=== PATIENT | female | born 1970 | race Caucasian/White ===

== ENCOUNTER 2020-08-05 11:48 | Emergency (ER) | payer OTHER, MEDICAID, SELFPAY ==
[2020-08-05 11:57] VITALS: BP 218/128; PULSE 81; RESP 16; TEMP 36.6; O2SAT 97; BMI 43.4
[2020-08-05 12:19] LABS: Add Manual Diff / Slide Review NO; Basophils Absolute Auto 100 /uL (0-100); Basophils Percent Auto 1.4 % (0-2); Eosinophils Absolute Auto 100 /uL (0-450); Eosinophils Percent Auto 1.9 % (2-4); Hematocrit 37.9 % (36-46); Hemoglobin 12.9 g/dL (12.0-16.0); Lymphocytes Absolute Auto 2500 /uL (1100-4500); Lymphocytes Percent Auto 31.1 % (25-40); Mean Corpuscular HGB Conc 34.1 % (30-36); Mean Corpuscular Hemoglobin 34.8 PG (26-34); Monocytes Absolute Auto 500 /uL (0-900); Neutrophils Absolute Auto 4700 /uL (1500-7000); Neutrophils Percent Auto 59.6 % (50-75); Platelet Count 355 X10^3/uL (150-400); Red Blood Cell Count 3.71 X10^6/uL (4.0-5.2); Red Cell Distribution Width 15.3 % (11.6-14.8); White Blood Cell Count 7.9 X10^3/uL (4.5-11.0)
[2020-08-05 12:35] LABS: BUN Creatinine Ratio 13.1 (6-22); Blood Urea Nitrogen 14 mg/dL (7-17); Calcium 9.4 mg/dL (8.4-10.2); Carbon Dioxide 32 mmol/L (22-32); Chloride 100 mmol/L (98-107); Estimated Glomerular Filt Rate 54.7 mL/min (>60); Glucose 116 mg/dL (70-100); HEMOLYSIS < 15 (0-50); Potassium 3.8 mmol/L (3.4-5.1); Sodium 139 mmol/L (137-145)
--- NOTE | 2020-08-05 12:59 | PC.NURSE ---
patient sent from PCP with asymptomatic hypertension. denies SOB, chest pains, n/v, diophoresis, headache, vision changes
--- NOTE | 2020-08-05 13:01 | ED_ITS ---
HPI - General Adult General Chief complaint: Hypertension Stated complaint: BLOOD PRESSURE IS EXTREMELY HIGH Time Seen by Provider: 08/05/20 12:05 Source: patient Mode of arrival: Ambulatory Limitations: no limitations History of Present Illness HPI narrative: Patient is a 50-year-old female with a prior history of hypertension. She used to be on antihypertensive medicines but has not been on them for some time now. She states that there was issues with pain med/insurance. That now has been resolved. She had an appointment today to establish care with a new primary provider. When she arrived at the visit was found that she was hypertensive. She denies any associated symptoms. She was sent to the emergency department for further evaluation. Related Data Previous Rx's Medication Instructions Recorded lisinopril 10 mg PO DAILY #30 tab 08/05/20 Allergies Allergy/AdvReac Type Severity Reaction Status Date / Time No Known Drug Allergies Allergy Unverified 08/05/20 10:35 Review of Systems Constitutional Constitutional: Denies headache(s) ENT Ears, Nose, Mouth, and Throat: Denies headache(s) Cardiovascular Cardiovascular: Denies chest pain and Denies dyspnea Respiratory Respiratory: Denies dyspnea Gastrointestinal Gastrointestinal: Denies abdominal pain Integumentary/Breasts Skin/Breast: Reports system reviewed and no additional complaints, except as documented Neurologic Neurologic: Reports system reviewed and no additional complaints, except as documented and Denies headache(s) Hematologic/Lymphatic On Anticoagulants: No Allergic/Immunologic Allergic/Immunologic: Reports system reviewed and no additional complaints, except as documented Patient History Medical History Hypertension Social History Smoking Status: Current every day smoker Smoking Status: Current every day smoker Exam Initial Vital Signs Initial Vital Signs: Vital Signs Temperature 97.8 F 08/05/20 11:57 Pulse Rate 81 08/05/20 11:57 Respiratory Rate 16 08/05/20 11:57 Blood Pressure 218/128 H 08/05/20 11:57 Pulse Oximetry 97 08/05/20 11:57 Const General: cooperative and comfortable Limitations: mental status not altered HENMT Head: normal to inspection and normocephalic Eyes General: appearance normal, both eyes and all related structures Resp Effort & Inspection: normal respiratory effort Auscultation: clear to auscultation bilaterally Cardio Rate: regular rate Rhythm: regular rhythm Skin Lesions: no lesions Rashes: no rashes Neuro General: patient alert, patient awake and patient oriented x3 Cognition: normal cognition Speech: speech normal Motor: muscle tone normal throughout Sensory Exam: no sensory deficits noted Extrem General: normal to inspection and capillary refill normal Psych Appearance: grossly normal and well kempt Scores GCS Jennifer coma scale eye opening: Spontaneous Jennifer coma scale verbal response: Orientated [place] coma scale motor response: Obey commands [place] coma scale total score: 15 Course Orders Ordered: ED Orders 08/05/20 12:00 EKG-12 Lead Stat 08/05/20 12:12 Basic Metabolic Panel Stat Complete Blood Count AUTO DIFF Stat Discontinued Medications Lisinopril (Lisinopril 10 Mg Tablet) 10 mg PO NOW ONE Stop: 08/05/20 13:02 Last Admin: 08/05/20 13:08 Dose: 10 mg Documented by: DEEP Vital Signs Vital signs: Vital Signs - 8 hr 08/05/20 11:57 08/05/20 13:08 08/05/20 13:15 Temperature 97.8 F Pulse Rate 81 72 70 Respiratory Rate 16 22 Blood Pressure 218/128 H 191/115 H 189/112 H Pulse Oximetry 97 99 Medical Decision Making Lab Data Lab results reviewed: Yes I reviewed the patient's lab results. Result diagrams: 08/05/20 12:12 08/05/20 12:12 Labs: Lab Results 08/05/20 08/05/20 Range/Units 12:12 12:12 WBC 7.9 (4.5-11.0) X10^3/uL RBC 3.71 L (4.0-5.2) X10^6/uL Hgb 12.9 (12.0-16.0) g/dL Hct 37.9 (36-46) % MCV 102.0 H (80-100) fL MCH 34.8 H (26-34) PG MCHC 34.1 (30-36) % RDW 15.3 H (11.6-14.8) % Plt Count 355 (150-400) X10^3/uL Neut % (Auto) 59.6 (50-75) % Lymph % (Auto) 31.1 (25-40) % [place] % (Auto) 6.0 (3-14) % Eos % (Auto) 1.9 L (2-4) % Baso % (Auto) 1.4 (0-2) % Neut # (Auto) 4700 (0689-2626) /uL Lymph # (Auto) 2500 (8414-1163) /uL [place] # (Auto) 500 (0-900) /uL Eos # (Auto) 100 (0-450) /uL Baso # (Auto) 100 (0-100) /uL Sodium 139 (137-145) mmol/L Potassium 3.8 (3.4-5.1) mmol/L Chloride 100 (98-107) mmol/L Carbon Dioxide 32 (22-32) mmol/L BUN 14 (7-17) mg/dL Creatinine 1.07 H (0.52-1.04) mg/dL Estimated GFR 54.7 L (>60) mL/min BUN/Creatinine Ratio 13.1 (6-22) Glucose 116 H (70-100) mg/dL Calcium 9.4 (8.4-10.2) mg/dL ECG Data Attestation: I personally reviewed and interpreted this ECG as follows: Prior ECG tracings: not available for review Interpretation: Sinus rhythm Ventricular rate is 78 Normal axis Normal QRS Normal QTC No ST T wave changes MDM Narrative Medical decision making narrative: Patient is hypertensive but is asymptomatic. She has no indication of any end-organ dysfunction. Low suspicion for ACS. Not clinically in heart failure. No respiratory distress. No headaches. She has been on lisinopril and atenolol in the past. Since she has not been on any these medications in some time will start her on lisinopril today. She understands that this will potentially need to be increased and other medications will potentially need to be added but I feel starting her slow so that she does not drop her blood pressure to fast is warranted in her case. We did discuss the procedure taking her blood pressure at home. Will have her contact her primary provider for follow-up. She expressed understanding and agreement. Discharge Plan Departure Patient Disposition: Home Clinical Impression: Hypertension Instructions: DI for High Blood Pressure Activity Restrictions/Additional Instructions: A prescription for lisinopril was electronically transmitted to [facility]. Please start taking it tomorrow. You were given a dose here in the emergency department. Start taking her blood pressure at home like we discussed. I recommend that after discharge ago past your primary provider's office to schedule a repeat appointment. Return to the emergency department for any new or worsening symptoms Prescriptions: New lisinopril 10 mg tablet 10 mg PO DAILY Qty: 30 RF: 0 Referrals: Pierre Rivera ARNP [Primary Care Provider] -
[2020-08-05 13:08] VITALS: BP 191/115; PULSE 72
[2020-08-05] MEDS: lisinopriL 10 MG TABLET PO (13:08)
[2020-08-05 13:15] VITALS: BP 189/112; PULSE 70; RESP 22; O2SAT 99
== END 2020-08-05 13:16 | disposition home or self-care (01) ==
PROVIDERS: Emergency Provider Emergency Medicine; PCP Registered Nurse Diabetes Educator
DX: I10 Essential (primary) hypertension (principal)
CPT/HCPCS: 36415; 80048; 85025; 93005; 99283; 99284

== ENCOUNTER → 2020-08-18 14:11 | Outpatient (CLI) | payer OTHER, MEDICAID, SELFPAY ==
--- NOTE | 2020-08-18 14:12 | DI.US.S_ITS ---
PROCEDURE: US THYROID INDICATIONS: ENLARGED THYROID TECHNIQUE: Real-time scanning was performed of the thyroid gland, with image documentation. COMPARISON: None. FINDINGS: Right: The thyroid gland is diffusely enlarged and hypoechoic with heterogenous echotexture measuring 6.8 x 2.5 x 3.4 centimeter. There is no increased vascularity. No solid or cystic mass. A 5 millimeter calcification is seen in the midpole of the right thyroid. Left: The thyroid gland is diffusely enlarged and hypoechoic with heterogenous echotexture measuring 6.2 x 3.7 x 2.3 centimeters there is no increased vascularity. No solid or cystic mass. A lymph node in the left lateral neck measures 1.4 x 0.8 x 1.1 centimeters. Isthmus: The thyroid isthmus is thickened measuring 2.1 centimeters. mm thick. IMPRESSION: 1. Diffusely enlarged thyroid bilaterally consistent with thyroiditis. 2. No focal thyroid nodule. 3. Enlarged lymph node in the left neck. Dictated by: Julio Hamilton M.D. on 08/18/2020 at 16:13 Approved by: Julio Hamilton M.D. on 08/18/2020 at 16:21
== END ==
PROVIDERS: PCP Registered Nurse Diabetes Educator; Referring Provider Registered Nurse Diabetes Educator; Visit Provider Registered Nurse Diabetes Educator
DX: E04.9 Nontoxic goiter, unspecified (principal)
CPT/HCPCS: 76536

== ENCOUNTER → 2020-08-28 08:13 | Outpatient (CLI) | payer OTHER, MEDICAID, SELFPAY ==
[2020-08-28 09:07] LABS: Appearance Urine UA CLEAR; Bilirubin Urine UA NEGATIVE (NEGATIVE); Color Urine UA YELLOW; Glucose Urine UA NEGATIVE (Negative); Ketones Urine UA NEGATIVE (NEGATIVE); Leukocyte Esterase Urine UA NEGATIVE (NEGATIVE); Nitrite Urine UA NEGATIVE (Negative); Occult Blood Urine UA 1+ (Negative); Protein Urine UA TRACE (Negative); Urobilinogen Urine UA 0.2 E.U./dL (0.2)
[2020-08-28 09:18] LABS: Amorphous Sediment Urine 2+; Bacteria Urine Occasional (0-1); Culture Indicated Urine Specimen Cultured; Mucus Urine 2+ (Negative); RBC Urine 0-1/HPF (0-5/HPF); Squamous Epithelial Cell Urine 1-5 /HPF (0-5/HPF); WBC Urine 0-1/HPF (0-5/HPF)
[2020-08-28 09:34] LABS: Alanine Aminotransferase 19 IU/L (<35); Albumin 4.8 g/dL (3.5-5.0); Albumin Globulin Ratio 1.3 (1.0-2.8); Alkaline Phosphatase 60 U/L (38-126); Aspartate Aminotransferase 40 IU/L (14-36); Bilirubin Total 0.5 mg/dL (0.2-1.3); Blood Urea Nitrogen 11 mg/dL (7-17); Calcium 9.7 mg/dL (8.4-10.2); Carbon Dioxide 31 mmol/L (22-32); Chloride 98 mmol/L (98-107); Globulin 3.6 g/dL (1.7-4.1); Glucose 124 mg/dL (70-100); HDL Cholesterol 49 mg/dL (40-60); HEMOLYSIS < 15 (0-50); Sodium 136 mmol/L (137-145); Total Protein 8.4 g/dL (6.3-8.2); Triglycerides 170 mg/dL (35-150)
[2020-08-28 09:49] LABS: Cholesterol 413 mg/dL (140-199); Free T4, Direct Thyroxine < 0.09 ng/dL (0.78-2.19); LDL Cholesterol Calculated 330 mg/dL (<100)
[2020-08-28 09:58] LABS: Creatinine Urine Random 200.6 mg/dL
[2020-08-28 10:02] LABS: Microalbumi Creatinin Ratio Ur 35.8 ug/mg CR (<30); Microalbumin Urine Random 7.2 mg/dL (0-1.6)
[2020-08-28 10:27] LABS: Folate > 20.0 ng/mL (2.76-20.0); Vitamin B12 722 pg/mL (239-931)
[2020-08-28 10:46] LABS: Thyroid Stimulating Hormone 157 uIU/mL (0.47-4.68)
[2020-08-29 07:48] LABS: Thyroid Peroxidase Antibodies >600 IU/mL (0-34)
== END ==
PROVIDERS: PCP Registered Nurse Diabetes Educator; Referring Provider Registered Nurse Diabetes Educator; Visit Provider Registered Nurse Diabetes Educator
DX: D75.89 Other specified diseases of blood and blood-forming organs (principal); E04.9 Nontoxic goiter, unspecified; I10 Essential (primary) hypertension; R94.4 Abnormal results of kidney function studies
CPT/HCPCS: 36415; 80053; 80061; 81001; 82043; 82570; 82607; 82746; 84439; 84443; 84481; 86376; 87086

== ENCOUNTER → 2020-09-10 10:46 | Outpatient (CLI) | payer OTHER, MEDICAID, SELFPAY ==
--- NOTE | 2020-09-10 10:47 | DI.US.S_ITS ---
PROCEDURE: US PERIPH VENOUS LOW EXTREM BI INDICATIONS: BILATERAL THIGH PAIN TECHNIQUE: Real-time imaging, as well as color and pulse Doppler interrogation, were performed of the deep veins of both legs from the inguinal ligament to the popliteal fossa. COMPARISON: None. FINDINGS: Right: The common femoral, femoral and popliteal veins are normally compressible, and free of intraluminal thrombus. Color and pulse Doppler demonstrate normal phasic intravascular flow. There is normal augmentation response to distal compression maneuver. Left: The common femoral, femoral and popliteal veins are normally compressible, and free of intraluminal thrombus. Color and pulse Doppler demonstrate normal phasic intravascular flow. There is normal augmentation response to distal compression maneuver. IMPRESSION: No evidence of DVT in visualized bilateral lower extremity veins. Dictated by: Pete Diallo M.D. on 09/10/2020 at 11:22 Approved by: Pete Diallo M.D. on 09/10/2020 at 11:22
--- NOTE | 2020-09-10 10:47 | DI.RAD.S_ITS ---
PROCEDURE: XR HIP W PEL IF DONE DOLORES MIN 4V INDICATIONS: bilateral hip pain, possible lumbosacral radiculopathy TECHNIQUE: AP pelvis with lateral view(s) of the bilateral hip(s). COMPARISON: None. FINDINGS: Bones: No fractures or dislocations. Mild to moderate symmetric appearing bilateral hip joint osteoarthritis is seen. No evidence of avascular necrosis of femoral head. Pelvic ring appears intact. No suspicious bony lesions. Soft tissues: The visualized bowel gas pattern is normal. No suspicious soft tissue calcifications. IMPRESSION: Symmetric appearing [id number] bilateral hip joint osteoarthritis. No fracture or dislocation. No evidence of avascular necrosis. Dictated by: Pete Diallo M.D. on 09/10/2020 at 13:08 Approved by: Pete Diallo M.D. on 09/10/2020 at 13:25
--- NOTE | 2020-09-10 10:47 | DI.RAD.S_ITS ---
PROCEDURE: XR LUMBAR SPINE MIN 4V INDICATIONS: bilateral hip pain, possible lumbosacral radiculopathy TECHNIQUE: 5 views of the lumbar spine were acquired, including bilateral oblique views. COMPARISON: None. FINDINGS: Bones: 5 nonrib-bearing vertebrae are present. There is normal bony alignment. No vertebral body compression fractures. Mild degenerative endplate changes are noted in lower lumbar spine at L4-5 and L5-S1 levels. No suspicious bony lesions. Soft tissues: Overlying bowel gas pattern is normal. No suspicious soft tissue calcifications. Oblique images: No pars defects. IMPRESSION: Very mild degenerative disc disease in lower lumbar spine at L4-5 and L5-S1 levels. No compression fracture or spondylolisthesis. No gross pars defect. Dictated by: Pete Diallo M.D. on 09/10/2020 at 13:44 Approved by: Pete Diallo M.D. on 09/10/2020 at 13:45
== END ==
PROVIDERS: PCP Registered Nurse Diabetes Educator; Referring Provider Registered Nurse Diabetes Educator; Visit Provider Registered Nurse Diabetes Educator
DX: M25.551 Pain in right hip (principal); M25.552 Pain in left hip; M16.0 Bilateral primary osteoarthritis of hip; R20.2 Paresthesia of skin; M79.651 Pain in right thigh; M79.652 Pain in left thigh
CPT/HCPCS: 72110; 73522; 93970

== ENCOUNTER → 2020-10-07 10:29 | Outpatient (CLI) | payer OTHER, MEDICAID, SELFPAY ==
[2020-10-07 10:50] LABS: Add Manual Diff / Slide Review NO; Basophils Absolute Auto 100 /uL (0-100); Basophils Percent Auto 1.4 % (0-2); Eosinophils Absolute Auto 100 /uL (0-450); Eosinophils Percent Auto 1.2 % (2-4); Hematocrit 32.3 % (36-46); Hemoglobin 10.7 g/dL (12.0-16.0); Lymphocytes Absolute Auto 2200 /uL (1100-4500); Lymphocytes Percent Auto 23.7 % (25-40); Mean Corpuscular HGB Conc 33.3 % (30-36); Mean Corpuscular Hemoglobin 33.8 PG (26-34); Mean Corpuscular Volume 101.5 fL (80-100); Monocytes Absolute Auto 800 /uL (0-900); Monocytes Percent Auto 8.7 % (3-14); Neutrophils Absolute Auto 6000 /uL (1500-7000); Platelet Count 482 X10^3/uL (150-400); Red Blood Cell Count 3.18 X10^6/uL (4.0-5.2); Red Cell Distribution Width 14.6 % (11.6-14.8); White Blood Cell Count 9.3 X10^3/uL (4.5-11.0)
[2020-10-07 11:31] LABS: BUN Creatinine Ratio 21.2 (6-22); Blood Urea Nitrogen 22 mg/dL (7-17); Calcium 9.2 mg/dL (8.4-10.2); Carbon Dioxide 28 mmol/L (22-32); Chloride 102 mmol/L (98-107); Estimated Glomerular Filt Rate 56.6 mL/min (>60); Glucose 102 mg/dL (70-100); HEMOLYSIS < 15 (0-50); Potassium 4.2 mmol/L (3.4-5.1); Sodium 137 mmol/L (137-145)
[2020-10-07 12:16] LABS: TSH w/ Reflex to FT4 3.57 uIU/mL (0.47-4.68)
== END ==
PROVIDERS: PCP Registered Nurse Diabetes Educator; Referring Provider Registered Nurse Diabetes Educator; Visit Provider Registered Nurse Diabetes Educator
DX: R73.01 Impaired fasting glucose (principal); D75.89 Other specified diseases of blood and blood-forming organs; I10 Essential (primary) hypertension; R94.4 Abnormal results of kidney function studies
CPT/HCPCS: 36415; 80048; 83036; 84443; 85025

== ENCOUNTER 2020-12-10 08:15 | Outpatient (RCR) | payer OTHER, MEDICAID, SELFPAY ==
--- NOTE | 2020-10-13 15:57 | PT.OIE ---
Current Diagnoses Pain in unspecified hip (10/13/20) Dorsalgia, unspecified (10/13/20) Past Medical History (Last Updated 10/12/20 @ 20:37 by Mariya Olsen) Acquired hypothyroidism (~1996) Anxiety (~1988) Chicken pox (~1978) History of appendectomy (~1981) History of tonsillectomy (~1983) History of tubal ligation (~2001) Human papilloma virus (~2011) Hypertension (~1996) Impaired fasting blood sugar Microalbuminuria PTSD (post-traumatic stress disorder) (~1988) Shoulder pain (~2006) Thyroid nodule (~1996) Wears glasses Past Surgical History (Last Updated 10/12/20 @ 20:37 by Mariya Olsen) Anesthesia History of appendectomy (~1981) History of tonsillectomy (~1983) History of tubal ligation (~2001) Visit Care Team Role Provider Type KWAME Bull Attending Provider Advanced Dj Instructor Primary Care Provider Referring Provider Specialty: Medical Address: [address] [place] [address], [facility] Email: [email or web address] Physical Therapy Initial Evaluation PT-OP-A Visit Information Start: 10/13/20 11:59 Freq: Status: Active Protocol: Document 10/13/20 13:30 AMB (Rec: 10/14/20 08:38 AMB [email or web address]) Out-Patient Physical Therapy Visit Information Visit Information Visit Type Initial Evaluation Visit Start Time 13:30 Visit Stop Time 14:15 Total Visit Minutes 45 Visit Number 1 PT-OP-B Current Condition Start: 10/13/20 11:59 Freq: Status: Active Protocol: Document 10/13/20 13:30 AMB (Rec: 10/13/20 13:47 AMB [id number]) Current Condition History of Current Condition Onset Date a couple of years, worsening for about 8 months, insidious onset Current Complaints R hip/back pain, intermittent ant thigh pain L>R History of Current Condition R hip/ back pain is constant, bilateral anterior thigh pain L>R but doesn't happen at the same time. L leg heaviness is happening multiple times per week getting out of bed, then move from sit to stand and generally pain happens then. Bending the knee seems to be a problem, especially kneeling. Insidious onset. Hip pain seems to be the worst ( constant). Standing stationary is very painful because of R hip pain. Semi reclined position with legs straight out is the most relieving position. 5 years ago walking 7-8 miles, now can 't stand more than a few minutes or walk more than a few minutes without pain. Treatment Goals Patient/Caregiver Goals Less pain Prior Functional Status Baseline Function- ADL's Independent Baseline Function- Mobility Independent Current Functional Impairments (Reported) Functional Limitations- ADL's Patient is applying for SSI for mental health reasons. She is currently living in a motel with her mom and daughter. She helps with laundry to get less rent. Personal Factors Other Personal Factors That May Effect [place] housing, HTN, Therapy/Recovery hypothyroid PT-OP-C Subjective Start: 10/13/20 11:59 Freq: Status: Active Protocol: Document 10/13/20 13:30 AMB (Rec: 10/14/20 08:38 AMB [email or web address]) Patient Questionnaires Lower Extremity Functional Scale LEFS Score 34 LEFS Impairment 40 to 59% Impaired (Score 32- 47) Oswestry Low Back Index Oswestry Score 44 Oswestry Impairment 40 to 59% Impaired (Score 40- 59) OP-PT Pain Assessment Comments Pain Comments R>L hip pain 4/10 dull ache can progress to stabbing, L>R quad pain just superior to patella 3/10 (electric), low back pain 4/10 PT-OP-F Manual Assessment Start: 10/13/20 11:59 Freq: Status: Active Protocol: Document 10/13/20 13:30 AMB (Rec: 10/14/20 15:57 AMB [email or web address]) Manual Assessments Soft Tissue Assessment Soft Tissue Mobility Assessment Tenderness throughout lumbar paraspinals, gluteals and especially at distal quads bilaterally PT-OP-G Mobility & Gait Start: 10/13/20 11:59 Freq: Status: Active Protocol: Document 10/13/20 13:30 AMB (Rec: 10/14/20 15:57 AMB [email or web address]) OP Gait Assessment Comments Gait Comments Pt attends in flip flops, WBOS reduced trunk rotation, trendelenburg gait, no AD PT-OP-K Range of Motion Start: 10/13/20 11:59 Freq: Status: Active Protocol: Document 10/13/20 13:30 AMB (Rec: 10/14/20 15:57 AMB [email or web address]) Lumbar Spine Range of Motion Lumbar Spine Active Degrees Testing Position Standing Flexion 25 Extension 20 Lateral Flexion Left 20 Lateral Flexion Right 10 Comments pain with flexion and Right sidebending Hip Goniometric Range of Motion Hip Left Passive Flexion w/Knee Flexed 93 Internal Rotation 38 External Rotation 38 Right Passive Flexion w/Knee Flexed 107 Internal Rotation 22 External Rotation 48 PT-OP-M Strength Start: 10/13/20 11:59 Freq: Status: Active Protocol: Document 10/13/20 13:30 AMB (Rec: 10/14/20 15:57 AMB [email or web address]) Hip Strength Hip Manual Muscle Testing Right Flexion (L2) 3- Fair- Extension (S1) 3- Fair- Abduction 3- Fair- External Rotation 3- Fair- Left Flexion (L2) 4 Good Extension (S1) 4 Good Abduction 4 Good External Rotation 4 Good PT-OP-T Assessment and Plan Start: 10/13/20 11:59 Freq: Status: Active Protocol: Document 10/13/20 13:30 AMB (Rec: 10/15/20 07:34 AMB [email or web address]) Physical Therapy Assessment Rehab Potential Rehabilitation Potential Good Evaluation Complexity Number of Personal Factors/Comorbidities 1-2 Number of Body Systems Impaired 4 or More Clinical Presentation at Evaluation Evolving Impairments Impairments Functional Activities, Functional Mobility,Gait,Pain, Posture,ROM,Strength Goals Three Impairment Standing tolerance Short Term Goal (STG) Danica will stand for 5 minutes with 3/10 pain or less. STG Duration 4 weeks Two Impairment HEP Short Term Goal (STG) Danica will be independent with a core and hip stabilization HEP. STG Duration 4 weeks One Impairment Strength Short Term Goal (STG) Danica will improve her hip abduction and external rotation strength to 4/5 or greater. STG Duration 4 weeks Half-Way Goal (LTG) Danica will improve her hip strength so that she can ambulate without Trendelenburg gait for 2 minutes. LTG Duration 6 weeks Assessment Summary Assessment Danica attends physical therapy with R>L low back hip pain and bilateral anterior distal thigh pain that do not seem to be related. During eval, we could easily reproduce Danica's R hip pain with hip IR/ER ROM and she was very weak with hip abduction and external rotation. She will benefit from both stretching and strengthening of the right hip and low back/core to manage this pain. The sudden/sharp pain in her bilateral thighs was more difficult to reproduce in the therapy session. She was quite tight in her quads and tender with palpation and would likely benefit from myofascial release there. She will benefit from physical therapy however her living situation and limited insurance benefits will be limiting factors. Physical Therapy Plan Frequency and Duration Frequency of Treatment 2x/Week Duration of Treatment 6 weeks Plan of Care Start Date 10/13/20 Plan of Care End Date 11/24/20 Therapeutic Interventions Therapeutic Interventions Gait Training,Home Exercise Program,Joint Mobilizations, Manual Therapy,Neuromuscular Re-education,Self-Care/Home Management,Therapeutic Activities,Therapeutic Exercises Modalities Cold Pack/Ice Massage,Electric Stimulation,Hot Packs Next Visit Focus/Plan Next Note Type Treatment Note Next Visit Plan Follow up on clamshells and hip flexor strength
--- NOTE | 2020-10-13 15:59 | PT.OPPOC ---
Physical, Occupational & Speech Therapy At [facility] Current Diagnoses Pain in unspecified hip (10/13/20) Dorsalgia, unspecified (10/13/20) Visit Care Team Role Provider Type KWAME Bull Attending Provider Advanced Ball Holder Primary Care Provider Referring Provider Specialty: Medical Address: [address] [place] [address], [facility] Email: [email or web address] Plan Of Care PT-OP-T Assessment and Plan Start: 10/13/20 11:59 Freq: Status: Active Protocol: Document 10/13/20 13:30 AMB (Rec: 10/15/20 07:34 AMB [email or web address]) Physical Therapy Assessment Rehab Potential Rehabilitation Potential Good Evaluation Complexity Number of Personal Factors/Comorbidities 1-2 Number of Body Systems Impaired 4 or More Clinical Presentation at Evaluation Evolving Impairments Impairments Functional Activities, Functional Mobility,Gait,Pain, Posture,ROM,Strength Goals Three Impairment Standing tolerance Short Term Goal (STG) Danica will stand for 5 minutes with 3/10 pain or less. STG Duration 4 weeks Two Impairment HEP Short Term Goal (STG) Danica will be independent with a core and hip stabilization HEP. STG Duration 4 weeks One Impairment Strength Short Term Goal (STG) Danica will improve her hip abduction and external rotation strength to 4/5 or greater. STG Duration 4 weeks Custodial Goal (LTG) Danica will improve her hip strength so that she can ambulate without Trendelenburg gait for 2 minutes. LTG Duration 6 weeks Assessment Summary Assessment Danica attends physical therapy with R>L low back hip pain and bilateral anterior distal thigh pain that do not seem to be related. During eval, we could easily reproduce Danica's R hip pain with hip IR/ER ROM and she was very weak with hip abduction and external rotation. She will benefit from both stretching and strengthening of the right hip and low back/core to manage this pain. The sudden/sharp pain in her bilateral thighs was more difficult to reproduce in the therapy session. She was quite tight in her quads and tender with palpation and would likely benefit from myofascial release there. She will benefit from physical therapy however her living situation and limited insurance benefits will be limiting factors. Physical Therapy Plan Frequency and Duration Frequency of Treatment 2x/Week Duration of Treatment 6 weeks Plan of Care Start Date 10/13/20 Plan of Care End Date 11/24/20 Therapeutic Interventions Therapeutic Interventions Gait Training,Home Exercise Program,Joint Mobilizations, Manual Therapy,Neuromuscular Re-education,Self-Care/Home Management,Therapeutic Activities,Therapeutic Exercises Modalities Cold Pack/Ice Massage,Electric Stimulation,Hot Packs Next Visit Focus/Plan Next Note Type Treatment Note Next Visit Plan Follow up on clamshells and hip flexor strength Plan of Care Dates Plan of Care Start Date 10/13/20 Plan of Care End Date 11/24/20 Electronically Signed by: Hallie Cedeno, PT 10/15/20 [id number] Please Sign and Return: I have reviewed this Plan of Care and certify that the skilled therapy services above are required to meet the patient?s needs. Physician Signature Date Printed Name and Credentials Clinical Instructor Signature Printed Name and Credentials
--- NOTE | 2020-10-22 14:02 | PT.OTN ---
Current Diagnoses Pain in unspecified hip (10/22/20) Dorsalgia, unspecified (10/22/20) Physical Therapy Treatment Note PT-OP-A Visit Information Start: 10/13/20 11:59 Freq: Status: Active Protocol: Document 10/22/20 08:15 AMB (Rec: 10/22/20 08:48 AMB [id number]) Out-Patient Physical Therapy Visit Information Visit Information Visit Type Treatment Note Visit Start Time 08:15 Visit Stop Time 09:00 Total Visit Minutes 45 Visit Number 2 PT-OP-B Current Condition Start: 10/13/20 11:59 Freq: Status: Active Protocol: Document 10/13/20 13:30 AMB (Rec: 10/13/20 13:47 AMB [id number]) Current Condition History of Current Condition Onset Date a couple of years, worsening for about 8 months, insidious onset Current Complaints R hip/back pain, intermittent ant thigh pain L>R History of Current Condition R hip/ back pain is constant, bilateral anterior thigh pain L>R but doesn't happen at the same time. L leg heaviness is happening multiple times per week getting out of bed, then move from sit to stand and generally pain happens then. Bending the knee seems to be a problem, especially kneeling. Insidious onset. Hip pain seems to be the worst ( constant). Standing stationary is very painful because of R hip pain. Semi reclined position with legs straight out is the most relieving position. 5 years ago walking 7-8 miles, now can 't stand more than a few minutes or walk more than a few minutes without pain. Treatment Goals Patient/Caregiver Goals Less pain Prior Functional Status Baseline Function- ADL's Independent Baseline Function- Mobility Independent Current Functional Impairments (Reported) Functional Limitations- ADL's Patient is applying for SSI for mental health reasons. She is currently living in a motel with her mom and daughter. She helps with laundry to get less rent. Personal Factors Other Personal Factors That May Effect [place] housing, HTN, Therapy/Recovery hypothyroid PT-OP-C Subjective Start: 10/13/20 11:59 Freq: Status: Active Protocol: Document 10/22/20 08:15 AMB (Rec: 10/22/20 08:48 AMB [id number]) OP-PT Subjective Patient Comments Patient Comments Pt reports she has been doing the clamshell and it is going ok. She has been walking more because she is trying to quit smoking. PT-OP-F Manual Assessment Start: 10/13/20 11:59 Freq: Status: Active Protocol: Document 10/13/20 13:30 AMB (Rec: 10/14/20 15:57 AMB [email or web address]) Manual Assessments Soft Tissue Assessment Soft Tissue Mobility Assessment Tenderness throughout lumbar paraspinals, gluteals and especially at distal quads bilaterally PT-OP-G Mobility & Gait Start: 10/13/20 11:59 Freq: Status: Active Protocol: Document 10/13/20 13:30 AMB (Rec: 10/14/20 15:57 AMB [email or web address]) OP Gait Assessment Comments Gait Comments Pt attends in flip flops, WBOS reduced trunk rotation, trendelenburg gait, no AD PT-OP-K Range of Motion Start: 10/13/20 11:59 Freq: Status: Active Protocol: Document 10/13/20 13:30 AMB (Rec: 10/14/20 15:57 AMB [email or web address]) Lumbar Spine Range of Motion Lumbar Spine Active Degrees Testing Position Standing Flexion 25 Extension 20 Lateral Flexion Left 20 Lateral Flexion Right 10 Comments pain with flexion and Right sidebending Hip Goniometric Range of Motion Hip Left Passive Flexion w/Knee Flexed 93 Internal Rotation 38 External Rotation 38 Right Passive Flexion w/Knee Flexed 107 Internal Rotation 22 External Rotation 48 PT-OP-M Strength Start: 10/13/20 11:59 Freq: Status: Active Protocol: Document 10/13/20 13:30 AMB (Rec: 10/14/20 15:57 AMB [email or web address]) Hip Strength Hip Manual Muscle Testing Right Flexion (L2) 3- Fair- Extension (S1) 3- Fair- Abduction 3- Fair- External Rotation 3- Fair- Left Flexion (L2) 4 Good Extension (S1) 4 Good Abduction 4 Good External Rotation 4 Good PT-OP-Q Treatments Start: 10/13/20 11:59 Freq: Status: Active Protocol: Document 10/22/20 08:15 AMB (Rec: 10/22/20 13:54 AMB [id number]) Cardio Equipment Recumbent Stepper (Sci-Fit) Duration (Minutes) 7 Resistance 2 Therapeutic Exercises Supine Exercises 3 Supine Exercise Name LTR Reps/Minutes 2x10 2 Supine Exercise Name SLR Reps/Minutes 10 Comments cued TA 1 Supine Exercise Name PPT Reps/Minutes 10 Comments tends to overuse LB Sidelying Exercises 1 Sidelying Exercise Name clamshell Side right Reps/Minutes 2x10 Manual Therapy Treatment Soft Tissue Mobilization 2 Body Location bilat quads Mobilization Type Myofascial Release,Rolling Intensity/Depth Moderate Body Position Hooklying 1 Body Location R glutes Mobilization Type Myofascial Release,Strumming, Sustained Pressure Intensity/Depth Moderate Body Position Sidelying PT-OP-T Assessment and Plan Start: 10/13/20 11:59 Freq: Status: Active Protocol: Document 10/22/20 08:15 AMB (Rec: 10/22/20 09:00 AMB [id number]) Physical Therapy Assessment Goals Three Impairment Standing tolerance Short Term Goal (STG) Danica will stand for 5 minutes with 3/10 pain or less. STG Duration 4 weeks Two Impairment HEP Short Term Goal (STG) Danica will be independent with a core and hip stabilization HEP. STG Duration 4 weeks One Impairment Strength Short Term Goal (STG) Danica will improve her hip abduction and external rotation strength to 4/5 or greater. STG Duration 4 weeks Custodial Goal (LTG) Danica will improve her hip strength so that she can ambulate without Trendelenburg gait for 2 minutes. LTG Duration 6 weeks Assessment Summary Assessment Danica had tenderness and soreness at R hip and bilateral distal quads today. Tended to over use back muscles with PPT so did not give for HEP. Physical Therapy Plan Next Visit Focus/Plan Next Note Type Treatment Note Next Visit Plan Follow up on new addition to HEP: SLR and LTR
--- NOTE | 2020-10-28 13:57 | PT.OTN ---
Current Diagnoses Pain in unspecified hip (10/28/20) Dorsalgia, unspecified (10/28/20) Physical Therapy Treatment Note PT-OP-A Visit Information Start: 10/13/20 11:59 Freq: Status: Active Protocol: Document 10/28/20 12:58 MA (Rec: 10/28/20 13:56 MA [id number]) Out-Patient Physical Therapy Visit Information Visit Information Visit Type Treatment Note Visit Start Time 13:00 Visit Stop Time 13:50 Total Visit Minutes 50 Visit Number 3 Number of RIPSHEAR OPERATOR Visits 1 PT-OP-B Current Condition Start: 10/13/20 11:59 Freq: Status: Active Protocol: Document 10/13/20 13:30 AMB (Rec: 10/13/20 13:47 AMB [id number]) Current Condition History of Current Condition Onset Date a couple of years, worsening for about 8 months, insidious onset Current Complaints R hip/back pain, intermittent ant thigh pain L>R History of Current Condition R hip/ back pain is constant, bilateral anterior thigh pain L>R but doesn't happen at the same time. L leg heaviness is happening multiple times per week getting out of bed, then move from sit to stand and generally pain happens then. Bending the knee seems to be a problem, especially kneeling. Insidious onset. Hip pain seems to be the worst ( constant). Standing stationary is very painful because of R hip pain. Semi reclined position with legs straight out is the most relieving position. 5 years ago walking 7-8 miles, now can 't stand more than a few minutes or walk more than a few minutes without pain. Treatment Goals Patient/Caregiver Goals Less pain Prior Functional Status Baseline Function- ADL's Independent Baseline Function- Mobility Independent Current Functional Impairments (Reported) Functional Limitations- ADL's Patient is applying for SSI for mental health reasons. She is currently living in a motel with her mom and daughter. She helps with laundry to get less rent. Personal Factors Other Personal Factors That May Effect [place] housing, HTN, Therapy/Recovery hypothyroid PT-OP-C Subjective Start: 10/13/20 11:59 Freq: Status: Active Protocol: Document 10/28/20 12:58 MA (Rec: 10/28/20 13:56 MA [id number]) OP-PT Subjective Patient Comments Patient Comments Pt reports her hips are sore and she had acupuncture yesterday PT-OP-F Manual Assessment Start: 10/13/20 11:59 Freq: Status: Active Protocol: Document 10/13/20 13:30 AMB (Rec: 10/14/20 15:57 AMB [email or web address]) Manual Assessments Soft Tissue Assessment Soft Tissue Mobility Assessment Tenderness throughout lumbar paraspinals, gluteals and especially at distal quads bilaterally PT-OP-G Mobility & Gait Start: 10/13/20 11:59 Freq: Status: Active Protocol: Document 10/13/20 13:30 AMB (Rec: 10/14/20 15:57 AMB [email or web address]) OP Gait Assessment Comments Gait Comments Pt attends in flip flops, WBOS reduced trunk rotation, trendelenburg gait, no AD PT-OP-K Range of Motion Start: 10/13/20 11:59 Freq: Status: Active Protocol: Document 10/13/20 13:30 AMB (Rec: 10/14/20 15:57 AMB [email or web address]) Lumbar Spine Range of Motion Lumbar Spine Active Degrees Testing Position Standing Flexion 25 Extension 20 Lateral Flexion Left 20 Lateral Flexion Right 10 Comments pain with flexion and Right sidebending Hip Goniometric Range of Motion Hip Left Passive Flexion w/Knee Flexed 93 Internal Rotation 38 External Rotation 38 Right Passive Flexion w/Knee Flexed 107 Internal Rotation 22 External Rotation 48 PT-OP-M Strength Start: 10/13/20 11:59 Freq: Status: Active Protocol: Document 10/13/20 13:30 AMB (Rec: 10/14/20 15:57 AMB [email or web address]) Hip Strength Hip Manual Muscle Testing Right Flexion (L2) 3- Fair- Extension (S1) 3- Fair- Abduction 3- Fair- External Rotation 3- Fair- Left Flexion (L2) 4 Good Extension (S1) 4 Good Abduction 4 Good External Rotation 4 Good PT-OP-Q Treatments Start: 10/13/20 11:59 Freq: Status: Active Protocol: Document 10/28/20 12:58 MA (Rec: 10/28/20 13:56 MA [id number]) Cardio Equipment Recumbent Stepper (Sci-Fit) Duration (Minutes) 7 Resistance 2 Seat Position 9 Therapeutic Exercises Supine Exercises 4 Supine Exercise Name piriformis & jabier stretch Side bilateral Reps/Minutes 1' ea 3 Supine Exercise Name LTR Reps/Minutes 2x10 2 Supine Exercise Name SLR Reps/Minutes 10 Comments cued TA 1 Supine Exercise Name PPT Reps/Minutes 10 Comments tends to overuse LB Sidelying Exercises 2 Sidelying Exercise Name Hip Abduction Side bilateral Reps/Minutes 10 1 Sidelying Exercise Name clamshell Side right Reps/Minutes 2x10 Manual Therapy Treatment Soft Tissue Mobilization 2 Body Location bilat quads, ITB, adductors Mobilization Type Myofascial Release,Rolling Intensity/Depth Moderate Body Position Hooklying 1 Body Location R glutes Mobilization Type Myofascial Release,Strumming, Sustained Pressure Intensity/Depth Moderate Body Position Sidelying PT-OP-T Assessment and Plan Start: 10/13/20 11:59 Freq: Status: Active Protocol: Document 10/28/20 12:58 MA (Rec: 10/28/20 13:56 MA [id number]) Physical Therapy Assessment Goals Three Impairment Standing tolerance Short Term Goal (STG) Danica will stand for 5 minutes with 3/10 pain or less. STG Duration 4 weeks Two Impairment HEP Short Term Goal (STG) Danica will be independent with a core and hip stabilization HEP. STG Duration 4 weeks One Impairment Strength Short Term Goal (STG) Danica will improve her hip abduction and external rotation strength to 4/5 or greater. STG Duration 4 weeks Desulfurizer Machine Goal (LTG) Danica will improve her hip strength so that she can ambulate without Trendelenburg gait for 2 minutes. LTG Duration 6 weeks Assessment Summary Assessment Pt is tender along ITB, quads, and glutes R>L. Encouraged pt to use her new mm roller at home to roll out bilateral LEs . Reviewed all HEP exercises and worked on posterior pelvic tilts with pt requiring cues to use abdoninals vs tightening low back. Physical Therapy Plan Frequency and Duration Frequency of Treatment 2x/Week Duration of Treatment 6 weeks Plan of Care Start Date 10/13/20 Plan of Care End Date 11/24/20 Therapeutic Interventions Therapeutic Interventions Gait Training,Home Exercise Program,Joint Mobilizations, Manual Therapy,Neuromuscular Re-education,Self-Care/Home Management,Therapeutic Activities,Therapeutic Exercises Modalities Cold Pack/Ice Massage,Electric Stimulation,Hot Packs Next Visit Focus/Plan Next Note Type Treatment Note Next Visit Plan Follow up on new addition to HEP: SLR and LTR
--- NOTE | 2020-11-14 10:57 | PT.OTN ---
Current Diagnoses Pain in unspecified hip (11/14/20) Dorsalgia, unspecified (11/14/20) Physical Therapy Treatment Note PT-OP-A Visit Information Start: 10/13/20 11:59 Freq: Status: Active Protocol: Document 11/14/20 08:15 AMB (Rec: 11/14/20 09:06 AMB [id number]) Out-Patient Physical Therapy Visit Information Visit Information Visit Type Treatment Note Visit Start Time 08:15 Visit Stop Time 09:00 Total Visit Minutes 45 Visit Number 4 Number of GENERATION MANAGER Visits 0 PT-OP-B Current Condition Start: 10/13/20 11:59 Freq: Status: Active Protocol: Document 10/13/20 13:30 AMB (Rec: 10/13/20 13:47 AMB [id number]) Current Condition History of Current Condition Onset Date a couple of years, worsening for about 8 months, insidious onset Current Complaints R hip/back pain, intermittent ant thigh pain L>R History of Current Condition R hip/ back pain is constant, bilateral anterior thigh pain L>R but doesn't happen at the same time. L leg heaviness is happening multiple times per week getting out of bed, then move from sit to stand and generally pain happens then. Bending the knee seems to be a problem, especially kneeling. Insidious onset. Hip pain seems to be the worst ( constant). Standing stationary is very painful because of R hip pain. Semi reclined position with legs straight out is the most relieving position. 5 years ago walking 7-8 miles, now can 't stand more than a few minutes or walk more than a few minutes without pain. Treatment Goals Patient/Caregiver Goals Less pain Prior Functional Status Baseline Function- ADL's Independent Baseline Function- Mobility Independent Current Functional Impairments (Reported) Functional Limitations- ADL's Patient is applying for SSI for mental health reasons. She is currently living in a motel with her mom and daughter. She helps with laundry to get less rent. Personal Factors Other Personal Factors That May Effect [place] housing, HTN, Therapy/Recovery hypothyroid PT-OP-C Subjective Start: 10/13/20 11:59 Freq: Status: Active Protocol: Document 11/14/20 08:15 AMB (Rec: 11/14/20 09:06 AMB [id number]) OP-PT Subjective Patient Comments Patient Comments Pt reports L leg is feeling better, but R leg over IT band groint and inner thigh continues to be painful. PT-OP-F Manual Assessment Start: 10/13/20 11:59 Freq: Status: Active Protocol: Document 10/13/20 13:30 AMB (Rec: 10/14/20 15:57 AMB [email or web address]) Manual Assessments Soft Tissue Assessment Soft Tissue Mobility Assessment Tenderness throughout lumbar paraspinals, gluteals and especially at distal quads bilaterally PT-OP-G Mobility & Gait Start: 10/13/20 11:59 Freq: Status: Active Protocol: Document 10/13/20 13:30 AMB (Rec: 10/14/20 15:57 AMB [email or web address]) OP Gait Assessment Comments Gait Comments Pt attends in flip flops, WBOS reduced trunk rotation, trendelenburg gait, no AD PT-OP-K Range of Motion Start: 10/13/20 11:59 Freq: Status: Active Protocol: Document 10/13/20 13:30 AMB (Rec: 10/14/20 15:57 AMB [email or web address]) Lumbar Spine Range of Motion Lumbar Spine Active Degrees Testing Position Standing Flexion 25 Extension 20 Lateral Flexion Left 20 Lateral Flexion Right 10 Comments pain with flexion and Right sidebending Hip Goniometric Range of Motion Hip Left Passive Flexion w/Knee Flexed 93 Internal Rotation 38 External Rotation 38 Right Passive Flexion w/Knee Flexed 107 Internal Rotation 22 External Rotation 48 PT-OP-M Strength Start: 10/13/20 11:59 Freq: Status: Active Protocol: Document 10/13/20 13:30 AMB (Rec: 10/14/20 15:57 AMB [email or web address]) Hip Strength Hip Manual Muscle Testing Right Flexion (L2) 3- Fair- Extension (S1) 3- Fair- Abduction 3- Fair- External Rotation 3- Fair- Left Flexion (L2) 4 Good Extension (S1) 4 Good Abduction 4 Good External Rotation 4 Good PT-OP-Q Treatments Start: 10/13/20 11:59 Freq: Status: Active Protocol: Document 11/14/20 08:15 AMB (Rec: 11/14/20 10:57 AMB [email or web address]) Therapeutic Exercises Supine Exercises 4 Supine Exercise Name piriformis & jabier stretch Side bilateral Reps/Minutes 1' ea 3 Supine Exercise Name LTR Reps/Minutes 2x10 2 Supine Exercise Name supin march Reps/Minutes 10 Comments cued TA 1 Supine Exercise Name PPT Reps/Minutes 10 Comments tends to overuse LB Sidelying Exercises 1 Sidelying Exercise Name clamshell Side right Reps/Minutes 2x10 Standing Exercises 1 Standing Exercise Name sidestepping with mini squat Reps/Minutes 10 Manual Therapy Treatment Soft Tissue Mobilization 2 Body Location bilat quads, ITB, adductors Mobilization Type Myofascial Release,Rolling Intensity/Depth Moderate Body Position Hooklying PT-OP-T Assessment and Plan Start: 10/13/20 11:59 Freq: Status: Active Protocol: Document 11/14/20 08:15 AMB (Rec: 11/14/20 10:57 AMB [email or web address]) Physical Therapy Assessment Goals Three Impairment Standing tolerance Short Term Goal (STG) Danica will stand for 5 minutes with 3/10 pain or less. STG Duration 4 weeks Two Impairment HEP Short Term Goal (STG) Danica will be independent with a core and hip stabilization HEP. STG Duration 4 weeks One Impairment Strength Short Term Goal (STG) Danica will improve her hip abduction and external rotation strength to 4/5 or greater. STG Duration 4 weeks Poultry Barn Manager Goal (LTG) Danica will improve her hip strength so that she can ambulate without Trendelenburg gait for 2 minutes. LTG Duration 6 weeks Assessment Summary Assessment Wecrystal pain has improved on the left but continues on the right. Encouraged her in hip abductor strengthening but tolerance continues to be limited. Physical Therapy Plan Next Visit Focus/Plan Next Note Type Treatment Note Next Visit Plan follow up on sidestepping with mini squat and supine march with PPT as new HEP
--- NOTE | 2020-11-20 11:08 | PT.OTN ---
Current Diagnoses Pain in unspecified hip (11/20/20) Dorsalgia, unspecified (11/20/20) Physical Therapy Treatment Note PT-OP-A Visit Information Start: 10/13/20 11:59 Freq: Status: Active Protocol: Document 11/20/20 09:00 AMB (Rec: 11/20/20 09:48 AMB [id number]) Out-Patient Physical Therapy Visit Information Visit Information Visit Type Treatment Note Visit Start Time 09:00 Visit Stop Time 09:45 Total Visit Minutes 45 Visit Number 5 PT-OP-B Current Condition Start: 10/13/20 11:59 Freq: Status: Active Protocol: Document 10/13/20 13:30 AMB (Rec: 10/13/20 13:47 AMB [id number]) Current Condition History of Current Condition Onset Date a couple of years, worsening for about 8 months, insidious onset Current Complaints R hip/back pain, intermittent ant thigh pain L>R History of Current Condition R hip/ back pain is constant, bilateral anterior thigh pain L>R but doesn't happen at the same time. L leg heaviness is happening multiple times per week getting out of bed, then move from sit to stand and generally pain happens then. Bending the knee seems to be a problem, especially kneeling. Insidious onset. Hip pain seems to be the worst ( constant). Standing stationary is very painful because of R hip pain. Semi reclined position with legs straight out is the most relieving position. 5 years ago walking 7-8 miles, now can 't stand more than a few minutes or walk more than a few minutes without pain. Treatment Goals Patient/Caregiver Goals Less pain Prior Functional Status Baseline Function- ADL's Independent Baseline Function- Mobility Independent Current Functional Impairments (Reported) Functional Limitations- ADL's Patient is applying for SSI for mental health reasons. She is currently living in a motel with her mom and daughter. She helps with laundry to get less rent. Personal Factors Other Personal Factors That May Effect [place] housing, HTN, Therapy/Recovery hypothyroid PT-OP-C Subjective Start: 10/13/20 11:59 Freq: Status: Active Protocol: Document 11/20/20 09:00 AMB (Rec: 11/20/20 09:48 AMB [id number]) OP-PT Subjective Patient Comments Patient Comments R leg has still been painful, almost fell down when trying to squat down to look at tire. PT-OP-F Manual Assessment Start: 10/13/20 11:59 Freq: Status: Active Protocol: Document 10/13/20 13:30 AMB (Rec: 10/14/20 15:57 AMB [email or web address]) Manual Assessments Soft Tissue Assessment Soft Tissue Mobility Assessment Tenderness throughout lumbar paraspinals, gluteals and especially at distal quads bilaterally PT-OP-G Mobility & Gait Start: 10/13/20 11:59 Freq: Status: Active Protocol: Document 10/13/20 13:30 AMB (Rec: 10/14/20 15:57 AMB [email or web address]) OP Gait Assessment Comments Gait Comments Pt attends in flip flops, WBOS reduced trunk rotation, trendelenburg gait, no AD PT-OP-K Range of Motion Start: 10/13/20 11:59 Freq: Status: Active Protocol: Document 10/13/20 13:30 AMB (Rec: 10/14/20 15:57 AMB [email or web address]) Lumbar Spine Range of Motion Lumbar Spine Active Degrees Testing Position Standing Flexion 25 Extension 20 Lateral Flexion Left 20 Lateral Flexion Right 10 Comments pain with flexion and Right sidebending Hip Goniometric Range of Motion Hip Left Passive Flexion w/Knee Flexed 93 Internal Rotation 38 External Rotation 38 Right Passive Flexion w/Knee Flexed 107 Internal Rotation 22 External Rotation 48 PT-OP-M Strength Start: 10/13/20 11:59 Freq: Status: Active Protocol: Document 10/13/20 13:30 AMB (Rec: 10/14/20 15:57 AMB [email or web address]) Hip Strength Hip Manual Muscle Testing Right Flexion (L2) 3- Fair- Extension (S1) 3- Fair- Abduction 3- Fair- External Rotation 3- Fair- Left Flexion (L2) 4 Good Extension (S1) 4 Good Abduction 4 Good External Rotation 4 Good PT-OP-Q Treatments Start: 10/13/20 11:59 Freq: Status: Active Protocol: Document 11/20/20 09:00 AMB (Rec: 11/20/20 09:48 AMB [id number]) Cardio Equipment Recumbent Elliptical ([employer]) Duration (Minutes) 7 Resistance 2 Seat Position 6 Therapeutic Exercises Supine Exercises 4 Supine Exercise Name piriformis & jabier stretch Side bilateral Reps/Minutes 1' ea Standing Exercises 2 Standing Exercise Name hip flexor stretch Reps/Minutes 30x2 1 Standing Exercise Name sidestepping with t band Reps/Minutes 10 Comments no mini squat due to knee pain Manual Therapy Treatment Soft Tissue Mobilization 2 Body Location bilat quads, ITB, adductors Mobilization Type Myofascial Release,Rolling Intensity/Depth Moderate Body Position Hooklying PT-OP-T Assessment and Plan Start: 10/13/20 11:59 Freq: Status: Active Protocol: Document 11/20/20 11:07 AMB (Rec: 11/20/20 11:08 AMB [email or web address]) Physical Therapy Assessment Assessment Summary Assessment Modified sidestepping due to knee pain. pt with significant tenderness at hip flexor on right today. Physical Therapy Plan Next Visit Focus/Plan Next Note Type Treatment Note Next Visit Plan follow up on R sided pain, standing hip flexor stretch
--- NOTE | 2020-11-25 10:41 | PT.OTN ---
Current Diagnoses Pain in unspecified hip (11/25/20) Dorsalgia, unspecified (11/25/20) Physical Therapy Treatment Note PT-OP-A Visit Information Start: 10/13/20 11:59 Freq: Status: Active Protocol: Document 11/25/20 09:44 AMB (Rec: 11/25/20 10:00 AMB [id number]) Out-Patient Physical Therapy Visit Information Visit Information Visit Type Progress Note Visit Start Time 09:45 Visit Stop Time 10:30 Total Visit Minutes 45 Visit Number 6 PT-OP-B Current Condition Start: 10/13/20 11:59 Freq: Status: Active Protocol: Document 10/13/20 13:30 AMB (Rec: 10/13/20 13:47 AMB [id number]) Current Condition History of Current Condition Onset Date a couple of years, worsening for about 8 months, insidious onset Current Complaints R hip/back pain, intermittent ant thigh pain L>R History of Current Condition R hip/ back pain is constant, bilateral anterior thigh pain L>R but doesn't happen at the same time. L leg heaviness is happening multiple times per week getting out of bed, then move from sit to stand and generally pain happens then. Bending the knee seems to be a problem, especially kneeling. Insidious onset. Hip pain seems to be the worst ( constant). Standing stationary is very painful because of R hip pain. Semi reclined position with legs straight out is the most relieving position. 5 years ago walking 7-8 miles, now can 't stand more than a few minutes or walk more than a few minutes without pain. Treatment Goals Patient/Caregiver Goals Less pain Prior Functional Status Baseline Function- ADL's Independent Baseline Function- Mobility Independent Current Functional Impairments (Reported) Functional Limitations- ADL's Patient is applying for SSI for mental health reasons. She is currently living in a motel with her mom and daughter. She helps with laundry to get less rent. Personal Factors Other Personal Factors That May Effect [place] housing, HTN, Therapy/Recovery hypothyroid PT-OP-C Subjective Start: 10/13/20 11:59 Freq: Status: Active Protocol: Document 11/25/20 09:45 AMB (Rec: 11/25/20 10:39 AMB [email or web address]) OP-PT Subjective Patient Comments Patient Comments Pt has been increasing her walking and feels like she limps after about 15 minutes at this point. PT-OP-F Manual Assessment Start: 10/13/20 11:59 Freq: Status: Active Protocol: Document 10/13/20 13:30 AMB (Rec: 10/14/20 15:57 AMB [email or web address]) Manual Assessments Soft Tissue Assessment Soft Tissue Mobility Assessment Tenderness throughout lumbar paraspinals, gluteals and especially at distal quads bilaterally PT-OP-G Mobility & Gait Start: 10/13/20 11:59 Freq: Status: Active Protocol: Document 10/13/20 13:30 AMB (Rec: 10/14/20 15:57 AMB [email or web address]) OP Gait Assessment Comments Gait Comments Pt attends in flip flops, WBOS reduced trunk rotation, trendelenburg gait, no AD PT-OP-K Range of Motion Start: 10/13/20 11:59 Freq: Status: Active Protocol: Document 10/13/20 13:30 AMB (Rec: 10/14/20 15:57 AMB [email or web address]) Lumbar Spine Range of Motion Lumbar Spine Active Degrees Testing Position Standing Flexion 25 Extension 20 Lateral Flexion Left 20 Lateral Flexion Right 10 Comments pain with flexion and Right sidebending Hip Goniometric Range of Motion Hip Left Passive Flexion w/Knee Flexed 93 Internal Rotation 38 External Rotation 38 Right Passive Flexion w/Knee Flexed 107 Internal Rotation 22 External Rotation 48 PT-OP-M Strength Start: 10/13/20 11:59 Freq: Status: Active Protocol: Document 10/13/20 13:30 AMB (Rec: 10/14/20 15:57 AMB [email or web address]) Hip Strength Hip Manual Muscle Testing Right Flexion (L2) 3- Fair- Extension (S1) 3- Fair- Abduction 3- Fair- External Rotation 3- Fair- Left Flexion (L2) 4 Good Extension (S1) 4 Good Abduction 4 Good External Rotation 4 Good PT-OP-Q Treatments Start: 10/13/20 11:59 Freq: Status: Active Protocol: Document 11/25/20 09:45 AMB (Rec: 11/25/20 10:38 AMB [email or web address]) Therapeutic Exercises Supine Exercises 4 Supine Exercise Name piriformis & jabier stretch Side bilateral Reps/Minutes 1' ea Sidelying Exercises 2 Sidelying Exercise Name Hip Abduction Side bilateral Reps/Minutes 10 1 Sidelying Exercise Name clamshell Side right Reps/Minutes 2x10 Standing Exercises 2 Standing Exercise Name hip flexor stretch Reps/Minutes 30x2 Manual Therapy Treatment Soft Tissue Mobilization 2 Body Location hip flexor release Intensity/Depth Moderate Body Position Hooklying PT-OP-T Assessment and Plan Start: 10/13/20 11:59 Freq: Status: Active Protocol: Document 11/25/20 09:44 AMB (Rec: 11/25/20 10:00 AMB [id number]) Physical Therapy Assessment Goals Three Impairment Standing tolerance Short Term Goal (STG) Danica will stand for 5 minutes with 3/10 pain or less. STG Duration MET Two Impairment HEP Short Term Goal (STG) Danica will be independent with a core and hip stabilization HEP. STG Duration 4 weeks--Progress made One Impairment Strength Short Term Goal (STG) Danica will improve her hip abduction and external rotation strength to 4/5 or greater. STG Duration 4 weeks-progress made Correction Goal (LTG) Danica will improve her hip strength so that she can ambulate without Trendelenburg gait for 2 minutes. LTG Duration MET Assessment Summary Assessment Right sided hip continues to be painful, left side is feeling better. Ambulated 290 feet in 2 minutes. Will continue to benefit from PT for continued hip and lumbar stabilization and iliopsoas release. Physical Therapy Plan Frequency and Duration Frequency of Treatment 1x/Week Duration of Treatment 6 weeks Plan of Care Start Date 11/25/20 Plan of Care End Date 01/06/21 Therapeutic Interventions Therapeutic Interventions Gait Training,Home Exercise Program,Joint Mobilizations, Manual Therapy,Neuromuscular Re-education,Self-Care/Home Management,Therapeutic Activities,Therapeutic Exercises Modalities Cold Pack/Ice Massage,Electric Stimulation,Hot Packs Next Visit Focus/Plan Next Note Type Treatment Note Next Visit Plan follow up on R sided pain, standing hip flexor stretch
--- NOTE | 2020-11-25 10:42 | PT.OPPOC ---
Physical, Occupational & Speech Therapy At [facility] Current Diagnoses Pain in unspecified hip (11/25/20) Dorsalgia, unspecified (11/25/20) Visit Care Team Role Provider Type KWAME Bull Attending Provider Advanced Financial Specialist Primary Care Provider Referring Provider Specialty: Medical Address: [address] [place] [address], [facility] Email: [email or web address] Plan Of Care PT-OP-T Assessment and Plan Start: 10/13/20 11:59 Freq: Status: Active Protocol: Document 11/25/20 09:44 AMB (Rec: 11/25/20 10:00 AMB [id number]) Physical Therapy Assessment Goals Three Impairment Standing tolerance Short Term Goal (STG) Danica will stand for 5 minutes with 3/10 pain or less. STG Duration MET Two Impairment HEP Short Term Goal (STG) Danica will be independent with a core and hip stabilization HEP. STG Duration 4 weeks--Progress made One Impairment Strength Short Term Goal (STG) Danica will improve her hip abduction and external rotation strength to 4/5 or greater. STG Duration 4 weeks-progress made Jail Goal (LTG) Danica will improve her hip strength so that she can ambulate without Trendelenburg gait for 2 minutes. LTG Duration MET Assessment Summary Assessment Right sided hip continues to be painful, left side is feeling better. Ambulated 290 feet in 2 minutes. Will continue to benefit from PT for continued hip and lumbar stabilization and iliopsoas release. Physical Therapy Plan Frequency and Duration Frequency of Treatment 1x/Week Duration of Treatment 6 weeks Plan of Care Start Date 11/25/20 Plan of Care End Date 01/06/21 Therapeutic Interventions Therapeutic Interventions Gait Training,Home Exercise Program,Joint Mobilizations, Manual Therapy,Neuromuscular Re-education,Self-Care/Home Management,Therapeutic Activities,Therapeutic Exercises Modalities Cold Pack/Ice Massage,Electric Stimulation,Hot Packs Next Visit Focus/Plan Next Note Type Treatment Note Next Visit Plan follow up on R sided pain, standing hip flexor stretch Plan of Care Dates Plan of Care Start Date 11/25/20 Plan of Care End Date 01/06/21 Electronically Signed by: Hallie Cedeno, PT 11/25/20 1042 Please Sign and Return: I have reviewed this Plan of Care and certify that the skilled therapy services above are required to meet the patient?s needs. Physician Signature Date Printed Name and Credentials Clinical Instructor Signature Printed Name and Credentials
--- NOTE | 2020-12-04 10:57 | PT.OTN ---
Current Diagnoses Pain in unspecified hip (12/04/20) Dorsalgia, unspecified (12/04/20) Physical Therapy Treatment Note PT-OP-A Visit Information Start: 10/13/20 11:59 Freq: Status: Active Protocol: Document 12/04/20 09:01 AMB (Rec: 12/04/20 09:26 AMB [id number]) Out-Patient Physical Therapy Visit Information Visit Information Visit Type Treatment Note Visit Start Time 09:00 Visit Stop Time 09:45 Total Visit Minutes 45 Visit Number 7 PT-OP-B Current Condition Start: 10/13/20 11:59 Freq: Status: Active Protocol: Document 10/13/20 13:30 AMB (Rec: 10/13/20 13:47 AMB [id number]) Current Condition History of Current Condition Onset Date a couple of years, worsening for about 8 months, insidious onset Current Complaints R hip/back pain, intermittent ant thigh pain L>R History of Current Condition R hip/ back pain is constant, bilateral anterior thigh pain L>R but doesn't happen at the same time. L leg heaviness is happening multiple times per week getting out of bed, then move from sit to stand and generally pain happens then. Bending the knee seems to be a problem, especially kneeling. Insidious onset. Hip pain seems to be the worst ( constant). Standing stationary is very painful because of R hip pain. Semi reclined position with legs straight out is the most relieving position. 5 years ago walking 7-8 miles, now can 't stand more than a few minutes or walk more than a few minutes without pain. Treatment Goals Patient/Caregiver Goals Less pain Prior Functional Status Baseline Function- ADL's Independent Baseline Function- Mobility Independent Current Functional Impairments (Reported) Functional Limitations- ADL's Patient is applying for SSI for mental health reasons. She is currently living in a motel with her mom and daughter. She helps with laundry to get less rent. Personal Factors Other Personal Factors That May Effect [place] housing, HTN, Therapy/Recovery hypothyroid PT-OP-C Subjective Start: 10/13/20 11:59 Freq: Status: Active Protocol: Document 12/04/20 09:01 AMB (Rec: 12/04/20 09:26 AMB [id number]) OP-PT Subjective Patient Comments Patient Comments Pt has been limping a bit more because of R ankle discomfort . PT-OP-F Manual Assessment Start: 10/13/20 11:59 Freq: Status: Active Protocol: Document 10/13/20 13:30 AMB (Rec: 10/14/20 15:57 AMB [email or web address]) Manual Assessments Soft Tissue Assessment Soft Tissue Mobility Assessment Tenderness throughout lumbar paraspinals, gluteals and especially at distal quads bilaterally PT-OP-G Mobility & Gait Start: 10/13/20 11:59 Freq: Status: Active Protocol: Document 10/13/20 13:30 AMB (Rec: 10/14/20 15:57 AMB [email or web address]) OP Gait Assessment Comments Gait Comments Pt attends in flip flops, WBOS reduced trunk rotation, trendelenburg gait, no AD PT-OP-K Range of Motion Start: 10/13/20 11:59 Freq: Status: Active Protocol: Document 10/13/20 13:30 AMB (Rec: 10/14/20 15:57 AMB [email or web address]) Lumbar Spine Range of Motion Lumbar Spine Active Degrees Testing Position Standing Flexion 25 Extension 20 Lateral Flexion Left 20 Lateral Flexion Right 10 Comments pain with flexion and Right sidebending Hip Goniometric Range of Motion Hip Left Passive Flexion w/Knee Flexed 93 Internal Rotation 38 External Rotation 38 Right Passive Flexion w/Knee Flexed 107 Internal Rotation 22 External Rotation 48 PT-OP-M Strength Start: 10/13/20 11:59 Freq: Status: Active Protocol: Document 10/13/20 13:30 AMB (Rec: 10/14/20 15:57 AMB [email or web address]) Hip Strength Hip Manual Muscle Testing Right Flexion (L2) 3- Fair- Extension (S1) 3- Fair- Abduction 3- Fair- External Rotation 3- Fair- Left Flexion (L2) 4 Good Extension (S1) 4 Good Abduction 4 Good External Rotation 4 Good PT-OP-Q Treatments Start: 10/13/20 11:59 Freq: Status: Active Protocol: Document 12/04/20 10:51 AMB (Rec: 12/04/20 10:55 AMB [email or web address]) Cardio Equipment Recumbent Elliptical (Biodex) Duration (Minutes) 7 Resistance 2 Seat Position 6 Therapeutic Exercises Supine Exercises 4 Supine Exercise Name piriformis & jabier stretch Side bilateral Reps/Minutes 1' ea Sidelying Exercises 2 Sidelying Exercise Name Hip Abduction Side bilateral Reps/Minutes 10 1 Sidelying Exercise Name clamshell Side right Reps/Minutes 2x10 Standing Exercises 2 Standing Exercise Name hip flexor stretch Reps/Minutes 30x2 Manual Therapy Treatment Soft Tissue Mobilization 2 Body Location R ITB, glutes, piriformis Mobilization Type Myofascial Release,Rolling Intensity/Depth Moderate Body Position Hooklying Manual Traction long axis Details R LE Body Position Sidelying PT-OP-T Assessment and Plan Start: 10/13/20 11:59 Freq: Status: Active Protocol: Document 12/04/20 09:01 AMB (Rec: 12/04/20 09:26 AMB [id number]) Physical Therapy Assessment Assessment Summary Assessment Danica had increased limping due to R ankle pain today, so focused more on supine exercises. R hip strength is improving but pain over lateral and posterior R hip remain. Left side and thighs are improving. Physical Therapy Plan Next Visit Focus/Plan Next Note Type Discharge Summary
--- NOTE | 2020-12-10 15:16 | PT.OTN ---
Current Diagnoses Pain in unspecified hip (12/10/20) Dorsalgia, unspecified (12/10/20) Physical Therapy Treatment Note PT-OP-A Visit Information Start: 10/13/20 11:59 Freq: Status: Active Protocol: Document 12/10/20 08:15 AMB (Rec: 12/10/20 09:10 AMB [id number]) Out-Patient Physical Therapy Visit Information Visit Information Visit Type Treatment Note Visit Start Time 08:15 Visit Stop Time 09:00 Total Visit Minutes 45 Visit Number 8 PT-OP-B Current Condition Start: 10/13/20 11:59 Freq: Status: Active Protocol: Document 10/13/20 13:30 AMB (Rec: 10/13/20 13:47 AMB [id number]) Current Condition History of Current Condition Onset Date a couple of years, worsening for about 8 months, insidious onset Current Complaints R hip/back pain, intermittent ant thigh pain L>R History of Current Condition R hip/ back pain is constant, bilateral anterior thigh pain L>R but doesn't happen at the same time. L leg heaviness is happening multiple times per week getting out of bed, then move from sit to stand and generally pain happens then. Bending the knee seems to be a problem, especially kneeling. Insidious onset. Hip pain seems to be the worst ( constant). Standing stationary is very painful because of R hip pain. Semi reclined position with legs straight out is the most relieving position. 5 years ago walking 7-8 miles, now can 't stand more than a few minutes or walk more than a few minutes without pain. Treatment Goals Patient/Caregiver Goals Less pain Prior Functional Status Baseline Function- ADL's Independent Baseline Function- Mobility Independent Current Functional Impairments (Reported) Functional Limitations- ADL's Patient is applying for SSI for mental health reasons. She is currently living in a motel with her mom and daughter. She helps with laundry to get less rent. Personal Factors Other Personal Factors That May Effect [place] housing, HTN, Therapy/Recovery hypothyroid PT-OP-C Subjective Start: 10/13/20 11:59 Freq: Status: Active Protocol: Document 12/10/20 08:15 AMB (Rec: 12/10/20 15:16 AMB [email or web address]) OP-PT Subjective Patient Comments Patient Comments Pt continuing to notice R hip pain, hasn't been walking as much because of the rain PT-OP-F Manual Assessment Start: 10/13/20 11:59 Freq: Status: Active Protocol: Document 10/13/20 13:30 AMB (Rec: 10/14/20 15:57 AMB [email or web address]) Manual Assessments Soft Tissue Assessment Soft Tissue Mobility Assessment Tenderness throughout lumbar paraspinals, gluteals and especially at distal quads bilaterally PT-OP-G Mobility & Gait Start: 10/13/20 11:59 Freq: Status: Active Protocol: Document 10/13/20 13:30 AMB (Rec: 10/14/20 15:57 AMB [email or web address]) OP Gait Assessment Comments Gait Comments Pt attends in flip flops, WBOS reduced trunk rotation, trendelenburg gait, no AD PT-OP-K Range of Motion Start: 10/13/20 11:59 Freq: Status: Active Protocol: Document 10/13/20 13:30 AMB (Rec: 10/14/20 15:57 AMB [email or web address]) Lumbar Spine Range of Motion Lumbar Spine Active Degrees Testing Position Standing Flexion 25 Extension 20 Lateral Flexion Left 20 Lateral Flexion Right 10 Comments pain with flexion and Right sidebending Hip Goniometric Range of Motion Hip Left Passive Flexion w/Knee Flexed 93 Internal Rotation 38 External Rotation 38 Right Passive Flexion w/Knee Flexed 107 Internal Rotation 22 External Rotation 48 PT-OP-M Strength Start: 10/13/20 11:59 Freq: Status: Active Protocol: Document 10/13/20 13:30 AMB (Rec: 10/14/20 15:57 AMB [email or web address]) Hip Strength Hip Manual Muscle Testing Right Flexion (L2) 3- Fair- Extension (S1) 3- Fair- Abduction 3- Fair- External Rotation 3- Fair- Left Flexion (L2) 4 Good Extension (S1) 4 Good Abduction 4 Good External Rotation 4 Good PT-OP-Q Treatments Start: 10/13/20 11:59 Freq: Status: Active Protocol: Document 12/10/20 08:15 AMB (Rec: 12/10/20 15:16 AMB [email or web address]) Therapeutic Exercises Standing Exercises 1 Standing Exercise Name half rebollar Comments modified with WBOS Other Exercises 3 Other Exercise Name rock backs 2 Other Exercise Name modified warrior two Reps/Minutes small knee bend 1 Other Exercise Name josh pose Reps/Minutes with sidbend, legs wide PT-OP-T Assessment and Plan Start: 10/13/20 11:59 Freq: Status: Active Protocol: Document 12/10/20 08:15 AMB (Rec: 12/10/20 15:16 AMB [email or web address]) Physical Therapy Assessment Goals Three Impairment Standing tolerance Short Term Goal (STG) Danica will stand for 5 minutes with 3/10 pain or less. STG Duration MET Two Impairment HEP Short Term Goal (STG) Danica will be independent with a core and hip stabilization HEP. STG Duration MET One Impairment Strength Short Term Goal (STG) Danica will improve her hip abduction and external rotation strength to 4/5 or greater. STG Duration NOT MET Half-Way Goal (LTG) Danica will improve her hip strength so that she can ambulate without Trendelenburg gait for 2 minutes. LTG Duration MET Assessment Summary Assessment Danica states she thinks she is about 40-50% better in comparison to eval. Her left side is doing significantly better, but right side continues to be painful, pt states she will continue with her HEP. Physical Therapy Plan Discharge Physical Therapy Discharge Comments insurance cap met
== END 2020-12-30 08:10 ==
LOC: PHYS 08:15
PROVIDERS: PCP Registered Nurse Diabetes Educator; Referring Provider Registered Nurse Diabetes Educator; Visit Provider Registered Nurse Diabetes Educator
DX: M25.559 Pain in unspecified hip (principal); M54.9 Dorsalgia, unspecified
CPT/HCPCS: 97110; 97140; 97162

== ENCOUNTER → 2020-12-11 09:05 | Outpatient (CLI) | payer OTHER, MEDICAID, SELFPAY ==
--- NOTE | 2020-12-11 09:06 | DI.US.S_ITS ---
PROCEDURE: US RENAL COMPLETE INDICATIONS: CKD 3 TECHNIQUE: Real-time scanning was performed of the kidneys and bladder, with image documentation. COMPARISON: None. FINDINGS: Kidneys: Kidneys are normal in size. Right kidney measures 12.3 cm long; left kidney measures 10.6 cm long. Right renal cortical thickness is 1.7 cm; left renal cortical thickness is 1.8 cm. Renal cortical echotexture is normal. No suspicious solid mass lesions. No shadowing stones are seen. There is dror-ss-gqtzllky right-sided hydronephrosis, which persists postvoid. No left-sided hydronephrosis is seen. On the left, there is a 15 mm simple appearing cyst inferiorly. Bladder: Pre-void bladder volume is 90 mL. Post-void residual is 0 mL. Pre-void images demonstrate no intraluminal masses or stones. On pre-void images, only the right ureteral jet can be seen with color Doppler interrogation. (Of note, ureteral jets may not be detectable in up to 25% of cases due to insufficient differences in specific gravity between ureteral and bladder urine). Miscellaneous: No free pelvic fluid. IMPRESSION: Orju-kf-enbcrojs right-sided hydronephrosis, which persists postvoid. There is a 15 mm left renal cyst incidentally noted. No postvoid residual. Dictated by: Aurelio Sanford M.D. on 12/11/2020 at 8:56 Approved by: Aurelio Sanford M.D. on 12/11/2020 at 8:58
== END ==
PROVIDERS: PCP Registered Nurse Diabetes Educator; Referring Provider Registered Nurse Diabetes Educator; Visit Provider Registered Nurse Diabetes Educator
DX: N18.30 Chronic kidney disease, stage 3 unspecified (principal); N28.1 Cyst of kidney, acquired; N13.30 Unspecified hydronephrosis
CPT/HCPCS: 76770

== ENCOUNTER → 2020-12-15 07:42 | Outpatient (CLI) | payer OTHER, MEDICAID, SELFPAY ==
[2020-12-15 08:49] LABS: Add Manual Diff / Slide Review NO; Basophils Absolute Auto 100 /uL (0-100); Basophils Percent Auto 0.9 % (0-2); Eosinophils Absolute Auto 400 /uL (0-450); Eosinophils Percent Auto 3.3 % (2-4); Hemoglobin 10.9 g/dL (12.0-16.0); Lymphocytes Absolute Auto 3000 /uL (1100-4500); Lymphocytes Percent Auto 26.1 % (25-40); Mean Corpuscular Hemoglobin 30.3 PG (26-34); Mean Corpuscular Volume 91.8 fL (80-100); Monocytes Absolute Auto 700 /uL (0-900); Monocytes Percent Auto 6.2 % (3-14); Neutrophils Absolute Auto 7200 /uL (1500-7000); Neutrophils Percent Auto 63.5 % (50-75); Platelet Count 612 X10^3/uL (150-400); Red Blood Cell Count 3.59 X10^6/uL (4.0-5.2); Red Cell Distribution Width 16.5 % (11.6-14.8); White Blood Cell Count 11.4 X10^3/uL (4.5-11.0)
[2020-12-15 08:55] LABS: Appearance Urine UA CLEAR; Bilirubin Urine UA NEGATIVE (NEGATIVE); Color Urine UA YELLOW; Glucose Urine UA NEGATIVE (Negative); Ketones Urine UA NEGATIVE (NEGATIVE); Leukocyte Esterase Urine UA NEGATIVE (NEGATIVE); Nitrite Urine UA NEGATIVE (Negative); Occult Blood Urine UA TRACE-INTACT (Negative); Protein Urine UA NEGATIVE (Negative); Urobilinogen Urine UA 0.2 E.U./dL (0.2)
[2020-12-15 09:47] LABS: Bacteria Urine Few (2-10); Culture Indicated Urine Cult Not Indicated; RBC Urine 1-5/HPF (0-5/HPF); Squamous Epithelial Cell Urine 5-10 /HPF (0-5/HPF); WBC Urine 1-5/HPF (0-5/HPF)
[2020-12-15 09:48] LABS: Alanine Aminotransferase 22 IU/L (<35); Albumin 3.9 g/dL (3.5-5.0); Albumin Globulin Ratio 1.3 (1.0-2.8); Alkaline Phosphatase 85 U/L (38-126); Aspartate Aminotransferase 24 IU/L (14-36); Bilirubin Total 0.2 mg/dL (0.2-1.3); Bilirubin Unconjugated 0.2 mg/dL (0.0-1.1); Cholesterol 189 mg/dL (140-199); Creatinine Urine Random 99.2 mg/dL; Globulin 2.9 g/dL (1.7-4.1); HDL Cholesterol 37 mg/dL (40-60); HEMOLYSIS < 15 (0-50); LDL Cholesterol Calculated 123 mg/dL (<100); Total Protein 6.8 g/dL (6.3-8.2); Triglycerides 146 mg/dL (35-150)
[2020-12-15 09:49] LABS: HEMOLYSIS < 15 (0-50); Iron 40 ug/dL (37-170)
[2020-12-15 09:54] LABS: Microalbumin Urine Random < 0.6 mg/dL (0-1.6)
[2020-12-15 10:00] LABS: Percent Iron Saturation 12 % (15-50); Total Iron Binding Capacity 339 ug/dL (265-497); Transferrin 273 mg/dL (206-381)
[2020-12-15 10:21] LABS: Ferritin 11 ng/mL (6-137)
[2020-12-15 15:26] LABS: Blood Urea Nitrogen 16 mg/dL (7-17); Calcium 9.3 mg/dL (8.4-10.2); Carbon Dioxide 27 mmol/L (22-32); Chloride 100 mmol/L (98-107); Estimated Glomerular Filt Rate 59.2 mL/min (>60); Glucose 112 mg/dL (70-100); HEMOLYSIS < 15 (0-50); Potassium 4.6 mmol/L (3.4-5.1); Sodium 136 mmol/L (137-145)
== END ==
PROVIDERS: PCP Registered Nurse Diabetes Educator; Referring Provider Registered Nurse Diabetes Educator; Visit Provider Registered Nurse Diabetes Educator
DX: D64.9 Anemia, unspecified (principal); E78.5 Hyperlipidemia, unspecified; N18.30 Chronic kidney disease, stage 3 unspecified; R74.8 Abnormal levels of other serum enzymes; R80.9 Proteinuria, unspecified; D75.839 Thrombocytosis, unspecified; N13.30 Unspecified hydronephrosis; N18.31 Chronic kidney disease, stage 3a
CPT/HCPCS: 36415; 80048; 80061; 80076; 81001; 82043; 82570; 82728; 83540; 83550; 85025

== ENCOUNTER → 2020-12-25 12:40 | Outpatient (CLI) | payer OTHER, MEDICAID, SELFPAY ==
--- NOTE | 2020-12-25 13:07 | DI.CT.S_ITS ---
PROCEDURE: CT ABDOMEN PELVIS WO/W CON INDICATIONS: Hydronephrosis TECHNIQUE: Optional 5 mm thick noncontrast images acquired from the diaphragm to the symphysis pubis. After the administration of intravenous contrast, 5 mm thick images acquired from the diaphragm to the symphysis pubis after a 10-minute delay. 2 mm thick coronal and sagittal reformats were then performed of the kidneys and ureters. For radiation dose reduction, the following was used: automated exposure control, adjustment of mA and/or kV according to patient size. COMPARISON: None. FINDINGS: Image quality: Excellent. Lung bases: Lung bases are clear. 3.1 mm noncalcified nodule in the right lower lobe. Heart size is normal. Trace pericardial effusion. Urinary system: Both kidneys are normal in size, without hydronephrosis . Nonspecific perinephric stranding. Mild dilatation of the right renal pelvis. Punctate (less than 5 mm) right nephrolithiasis. A few scattered sub cm hypoattenuating areas are seen, most consistent with cysts. Normal bilateral renal enhancement. Renal calyces appear normal in morphology when filled with contrast. Opacified portions of both ureters demonstrate normal caliber. Bladder wall thickness is normal. No calcified bladder stones. Other solid organs: Liver is normal in size and enhancement. No gallbladder wall thickening or pericholecystic fluid. A 4 mm calcified gallstone is seen in the dependent portion. Biliary system is non dilated. Pancreas enhances normally. Spleen is normal in size and enhancement. The right adrenal gland is unremarkable. A 2.7 cm mass is seen in the lateral limb of the left adrenal gland, most consistent with an adenoma. Peritoneum and bowel: Bowel loops demonstrate normal wall thickness and caliber. The appendix is not clearly identified. No free fluid or air. Nodes and vessels: No retroperitoneal or mesenteric adenopathy by size criteria. Aorta and inferior vena cava are normal in size. Calcified atheromatous change of the aorta. Abdominal wall: No ventral hernias. Pelvis: No pathologic free pelvic fluid. A 2.9 cm hypoattenuating lesion is seen in the left adnexa, compatible with an ovarian cyst. No inguinal hernias or adenopathy. Bones: No suspicious bony lesions. No vertebral body compression fractures. IMPRESSION: 1. No significant abnormality. 2. Punctate right nephrolithiasis. 3. Cholelithiasis. 4. Left adrenal gland adenoma. Dictated by: Kendrick Gage M.D. on 12/25/2020 at 13:29 Approved by: Kendrick Gage M.D. on 12/25/2020 at 13:39
== END ==
PROVIDERS: PCP Registered Nurse Diabetes Educator; Referring Provider Registered Nurse Diabetes Educator; Visit Provider Registered Nurse Diabetes Educator
DX: N13.30 Unspecified hydronephrosis (principal); R80.9 Proteinuria, unspecified; N18.31 Chronic kidney disease, stage 3a; D64.9 Anemia, unspecified; D75.839 Thrombocytosis, unspecified; N20.0 Calculus of kidney; K80.20 Calculus of gallbladder without cholecystitis without obstruction; D35.02 Benign neoplasm of left adrenal gland
CPT/HCPCS: 74178; Q9967

== ENCOUNTER → 2021-01-16 10:41 | Outpatient (CLI) | payer OTHER, MEDICAID, SELFPAY ==
[2021-01-16 12:18] LABS: Add Manual Diff / Slide Review NO; Basophils Absolute Auto 100 /uL (0-100); Basophils Percent Auto 1.1 % (0-2); Eosinophils Absolute Auto 200 /uL (0-450); Eosinophils Percent Auto 2.4 % (2-4); Hematocrit 36.7 % (36-46); Hemoglobin 12.4 g/dL (12.0-16.0); Lymphocytes Absolute Auto 2100 /uL (1100-4500); Lymphocytes Percent Auto 20.3 % (25-40); Mean Corpuscular HGB Conc 33.9 % (30-36); Mean Corpuscular Hemoglobin 30.8 PG (26-34); Mean Corpuscular Volume 90.7 fL (80-100); Monocytes Absolute Auto 600 /uL (0-900); Monocytes Percent Auto 5.8 % (3-14); Neutrophils Absolute Auto 7200 /uL (1500-7000); Neutrophils Percent Auto 70.4 % (50-75); Platelet Count 475 X10^3/uL (150-400); Red Blood Cell Count 4.05 X10^6/uL (4.0-5.2); Red Cell Distribution Width 18.1 % (11.6-14.8); White Blood Cell Count 10.3 X10^3/uL (4.5-11.0)
[2021-01-16 12:39] LABS: HEMOLYSIS < 15 (0-50); Iron 88 ug/dL (37-170)
[2021-01-16 12:49] LABS: Percent Iron Saturation 29 % (15-50); Total Iron Binding Capacity 302 ug/dL (265-497); Transferrin 237 mg/dL (206-381)
[2021-01-16 13:21] LABS: Ferritin 17 ng/mL (6-137)
[2021-01-17 08:13] LABS: Dehydroepiandrosterone Sulfate 70.9 ug/dL (41.2-243.7)
== END ==
PROVIDERS: PCP Registered Nurse Diabetes Educator; Referring Provider Registered Nurse Diabetes Educator; Visit Provider Registered Nurse Diabetes Educator
DX: D64.9 Anemia, unspecified (principal); D75.839 Thrombocytosis, unspecified; E27.8 Other specified disorders of adrenal gland
CPT/HCPCS: 36415; 82088; 82627; 82728; 83540; 83550; 84244; 85025

== ENCOUNTER → 2021-02-02 08:01 | Outpatient (CLI) | payer OTHER, MEDICAID, SELFPAY ==
--- NOTE | 2021-02-02 | DI.MG.S_ITS ---
BILATERAL DIGITAL SCREENING MAMMOGRAM 3D/2D WITH CAD: 02/02/2021 CLINICAL: Routine screening. Baseline exam. No prior exams were available for comparison. The tissue of both breasts is heterogeneously dense. This may lower the sensitivity of mammography. Current study was also evaluated with a Computer Aided Detection (CAD) system. No significant masses, calcifications, or other findings are seen in either breast. IMPRESSION: NEGATIVE There is no mammographic evidence of malignancy. A 1 year screening mammogram is recommended. This exam was interpreted at Station ID: [id number]. NOTE: For mammograms, a report in lay terms will be sent to the patient. Approximately 15% of breast malignancies will not be visualized mammographically. In the management of a palpable breast mass, a negative mammogram must not discourage biopsy of a clinically suspicious lesion. Electronically Signed By: Nigel Jaimes M.D., jr/rianna:02/02/2021 11:49:14 letter sent: Normal Exam ACR BI-RADS Category 1: Negative [id number]
== END ==
PROVIDERS: PCP Registered Nurse Diabetes Educator; Referring Provider Registered Nurse Diabetes Educator; Visit Provider Registered Nurse Diabetes Educator
DX: Z12.31 Encounter for screening mammogram for malignant neoplasm of breast (principal)
CPT/HCPCS: 77063; 77067

== ENCOUNTER → 2021-03-27 08:32 | Outpatient (CLI) | payer OTHER, MEDICAID, SELFPAY ==
[2021-03-27 09:33] LABS: Add Manual Diff / Slide Review NO; Basophils Absolute Auto 100 /uL (0-100); Basophils Percent Auto 0.7 % (0-2); Eosinophils Absolute Auto 300 /uL (0-450); Eosinophils Percent Auto 2.5 % (2-4); Hematocrit 38.5 % (36-46); Hemoglobin 13.1 g/dL (12.0-16.0); Lymphocytes Absolute Auto 2800 /uL (1100-4500); Lymphocytes Percent Auto 27.8 % (25-40); Mean Corpuscular HGB Conc 34.1 % (30-36); Mean Corpuscular Hemoglobin 32.1 PG (26-34); Mean Corpuscular Volume 94.3 fL (80-100); Monocytes Absolute Auto 600 /uL (0-900); Monocytes Percent Auto 5.7 % (3-14); Neutrophils Absolute Auto 6500 /uL (1500-7000); Neutrophils Percent Auto 63.3 % (50-75); Platelet Count 429 X10^3/uL (150-400); Red Blood Cell Count 4.08 X10^6/uL (4.0-5.2); Red Cell Distribution Width 14.4 % (11.6-14.8); White Blood Cell Count 10.2 X10^3/uL (4.5-11.0)
[2021-04-03 06:36] LABS: Aldosterone/Renin Activity Rat 1.1 (0.0-30.0); Plama Renin, LC/MS/MS 9.339 ng/mL/hr (0.167-5.380)
== END ==
PROVIDERS: PCP Registered Nurse Diabetes Educator; Referring Provider Registered Nurse Diabetes Educator; Visit Provider Registered Nurse Diabetes Educator
DX: D75.839 Thrombocytosis, unspecified; E27.8 Other specified disorders of adrenal gland
CPT/HCPCS: 36415; 82088; 84244; 85025

== ENCOUNTER → 2021-04-01 08:38 | Outpatient (CLI) | payer OTHER, MEDICAID, SELFPAY ==
--- NOTE | 2021-04-01 08:41 | DI.RAD.S_ITS ---
PROCEDURE: XR KUB INDICATIONS: urinary calculi TECHNIQUE: One view of the abdomen acquired. COMPARISON: [facility], CT, CT ABDOMEN PELVIS WO/W CON, 12/25/2020, 13:08. FINDINGS: Surgical changes and devices: None. Bowel: Bowel gas pattern is normal. Soft tissues: No suspicious abdominal calcifications. The known small right renal calculus is not seen by plain film. Visualized solid organ contours appear normal in size. Bones: No suspicious bony lesions. IMPRESSION: Negative examination. Dictated by: Brianna Siegel M.D. on 04/01/2021 at 12:28 Approved by: Brianna Siegel M.D. on 04/01/2021 at 12:29
== END ==
PROVIDERS: PCP Registered Nurse Diabetes Educator; Referring Provider Urology; Visit Provider Specialist
DX: N20.0 Calculus of kidney (principal); R93.421 Abnormal radiologic findings on diagnostic imaging of right kidney
CPT/HCPCS: 74018

== ENCOUNTER → 2021-04-15 14:47 | Outpatient (CLI) | payer OTHER, MEDICAID, SELFPAY ==
--- NOTE | 2021-04-15 14:48 | DI.US.S_ITS ---
PROCEDURE: US PELVIC COMPLETE INDICATIONS: MENORRHAGIA TECHNIQUE: Real-time scanning was performed of the pelvic organs, with image documentation. Additional endovaginal scanning was necessary due to incomplete visualization of the adnexal and endometrial structures by transabdominal scanning. COMPARISON: None. FINDINGS: Uterus: Uterus is anteverted and normal in size at 8.9 x 6.6 x 4.9 cm. The myometrium is homogeneous. The endometrium measures 12.4 mm combined thickness. There is small amount of complex fluid in the endometrial cavity. A hypoechoic focus is seen near the fundus measuring 0.8 x 1.1 x 0.7 cm, demonstrating vascularity, suggesting a endometrial polyp. Note is made of nabothian cysts in cervix. Ovaries: The right ovary measures 3.3 x 2.1 x 2.3 cm. The left ovary measures 3.5 x 1.5 x 1.3 cm. The ovaries have a normal sonographic appearance. Note is made of a couple of 1.5-1.6 cm cyst in the right ovary, compatible with dominant ovarian follicles. Other: No pathologic free abdominal or pelvic fluid. IMPRESSION: 1. Suspect a 0.8 x 1.1 x 0.7 cm endometrial polyp near the uterine fundus. If clinically indicated, saline infusion hysterosonogram may be helpful for further evaluation. 2. A small amount of complex fluid is seen in the uterine cavity. 3. Normal ovaries. Dominant ovarian follicles are noted in the right ovary. We strive to produce accurate, complete, and clear reports of imaging services. To assist us in improving patient care, this report was composed using standard report templates and voice recognition software. Therefore, it may contain abnormal punctuation, insertions and/or omissions. Occasional wrong-word or sound-alike substitutions may occur. Though we review the report and make efforts to correct it, we do recommend that the report be read carefully in proper context to recognize any text inaccuracies. Dictated by: Emmie Renee M.D. on 04/15/2021 at 17:30 Approved by: Emmie Renee M.D. on 04/15/2021 at 17:36
== END ==
PROVIDERS: PCP Registered Nurse Diabetes Educator; Referring Provider Registered Nurse Diabetes Educator; Visit Provider Registered Nurse Diabetes Educator
DX: N92.0 Excessive and frequent menstruation with regular cycle (principal)
CPT/HCPCS: 76856

== ENCOUNTER → 2021-06-09 10:03 | Outpatient (CLI) | payer OTHER, MEDICAID, SELFPAY ==
--- NOTE | 2021-06-09 10:06 | DI.RAD.S_ITS ---
PROCEDURE: XR KNEE RT 3V INDICATIONS: eval R shoulder, hip, knee, ankle pain, RUE paresthesi TECHNIQUE: 3 views of the knee were acquired. COMPARISON: None. FINDINGS: Bones: No fractures or dislocations. No suspicious bony lesions. Mild medial and patellofemoral compartment osteoarthritic degenerative changes. Soft tissues: No joint effusion. No suspicious soft tissue calcifications. IMPRESSION: Mild medial patellofemoral compartment right knee osteoarthritis. Dictated by: Jo Ann Engle MD, PhD on 06/09/2021 at 10:54 Approved by: Jo Ann Engle MD, PhD on 06/09/2021 at 10:55
--- NOTE | 2021-06-09 10:06 | DI.RAD.S_ITS ---
PROCEDURE: XR CERVICAL SPINE 4V OR 5V INDICATIONS: eval R shoulder, hip, knee, ankle pain, RUE paresthesi TECHNIQUE: 5 views of the cervical spine acquired. COMPARISON: None. FINDINGS: Bones: No fractures or dislocations to the T1 level. Oblique images demonstrate no bony foraminal stenoses. Anterior osteophytes at C5-6 and C6-7 with minimal disc space narrowing. Soft tissues: No prevertebral soft tissue swelling. IMPRESSION: Mild degenerative disc disease at C5-6 and C6-7. Dictated by: Julio Hamilton M.D. on 06/09/2021 at 13:03 Approved by: Julio Hamilton M.D. on 06/09/2021 at 13:04
--- NOTE | 2021-06-09 10:06 | DI.RAD.S_ITS ---
PROCEDURE: XR SHOULDER RT MIN 2V INDICATIONS: RUE paresthesia TECHNIQUE: 3 views of the shoulder were acquired. COMPARISON: None. FINDINGS: Bones: No fractures or dislocations. No suspicious bony lesions. Visualized ribs appear intact. Soft tissues: No suspicious soft tissue calcifications. IMPRESSION: 1. No acute bony abnormality. Dictated by: Jose Carlos Quresih M.D. on 06/09/2021 at 15:23 Approved by: Jose Carlos Qureshi M.D. on 06/09/2021 at 15:29
--- NOTE | 2021-06-09 10:06 | DI.RAD.S_ITS ---
PROCEDURE: XR ANKLE RT MIN 3V INDICATIONS: eval R shoulder, hip, knee, ankle pain, RUE paresthesia TECHNIQUE: 3 views of the ankle were acquired. COMPARISON: None. FINDINGS: Bones: No fractures or dislocations. Ankle mortise is normally aligned. No suspicious bony lesions. Soft tissues: No tibiotalar joint effusion. Achilles tendon appears normal. IMPRESSION: No acute ankle fracture or dislocation. Ankle mortise is congruent. Dictated by: Pete Diallo M.D. on 06/09/2021 at 11:05 Approved by: Pete Diallo M.D. on 06/09/2021 at 11:05
== END ==
PROVIDERS: PCP Registered Nurse Diabetes Educator; Referring Provider Registered Nurse Diabetes Educator; Visit Provider Registered Nurse Diabetes Educator
DX: M17.11 Unilateral primary osteoarthritis, right knee (principal); M50.122 Cervical disc disorder at C5-C6 level with radiculopathy; M25.511 Pain in right shoulder; M25.571 Pain in right ankle and joints of right foot; M25.561 Pain in right knee; M79.604 Pain in right leg; R20.2 Paresthesia of skin
CPT/HCPCS: 72050; 73030; 73562; 73610

== ENCOUNTER → 2021-06-18 08:36 | Outpatient (CLI) | payer OTHER, MEDICAID, SELFPAY ==
[2021-06-18 10:19] LABS: Hematocrit 36.4 % (36-46); Hemoglobin 12.6 g/dL (12.0-16.0); Mean Corpuscular HGB Conc 34.5 % (30-36); Mean Corpuscular Hemoglobin 32.6 PG (26-34); Mean Corpuscular Volume 94.5 fL (80-100); Platelet Count 389 X10^3/uL (150-400); Red Blood Cell Count 3.85 X10^6/uL (4.0-5.2); Red Cell Distribution Width 14.2 % (11.6-14.8); White Blood Cell Count 9.1 X10^3/uL (4.5-11.0)
== END ==
PROVIDERS: PCP Registered Nurse Diabetes Educator; Referring Provider Registered Nurse Diabetes Educator; Visit Provider Registered Nurse Diabetes Educator
DX: D75.839 Thrombocytosis, unspecified (principal)
CPT/HCPCS: 36415; 85027

== ENCOUNTER → 2021-07-23 14:19 | Outpatient (CLI) | payer OTHER, MEDICAID, SELFPAY ==
[2021-07-23 15:10] LABS: COVID19 -Nasal RAPID Negative (Negative)
== END ==
PROVIDERS: Family Provider Registered Nurse Diabetes Educator; PCP Registered Nurse Diabetes Educator; Visit Provider Obstetrics & Gynecology
DX: Z01.812 Encounter for preprocedural laboratory examination (principal); Z20.822 Contact with and (suspected) exposure to COVID-19
CPT/HCPCS: 87635; C9803

== ENCOUNTER 2021-07-24 07:44 | Day surgery (SDC) | payer OTHER, MEDICAID, SELFPAY ==
[2021-07-21 12:31] VITALS: BMI 38.9
[2021-07-24] VITALS (7 sets, daily range): BP systolic 104–144; BP diastolic 66–100; PULSE 63–69; RESP 12–16; TEMP 36.4–37; O2SAT 92–100; BMI 38.9
--- NOTE | 2021-07-24 | PATH_ITS ---
[facility] Accession Number: [id number] . 01 Material submitted: . endometrium - ENDOMETRIAL CURETTING . 02 Diagnosis: Endometrial Curetting: Avulsed portions of squamous and metaplstic squamous mucosa with reactive features; negative for squamous dysplasia or malignancy. Portions of proliferative endometrium; negative for glandular hyperplasia, cytologic atypia, or malignancy. Some endometrial fragments demonstrate prominent vessels, suggestive of polyp, if clinical and imaging studies are concordant. MRV 07/29/2021 1330 Local . 02 Electronically signed: . Christin Fleming MD, Pathologist NPI- [id number] . 01 Gross description: . Part A is received in formalin, labeled with patient's name and endometrial curettings, consists of multiple fragments of driver to red-brown soft tissue aggregating to 2.3 x 1.7 x 0.5 cm. The specimen is submitted entirely in cassette A1. ([id number]) /V 07/27/2021 1359 Local . 02 Pathologist provided ICD-10: N84.0, N92.0 . 02 CPT . 499431 Specimen Comment: A courtesy copy of this report has been sent to [phone] Performed at: 01 [facility] [address], [place], [place] [id number] MD Jose Carlos Patel MD Phone: [phone] Performed at: 02 [facility] [address] [place], [place] [id number] MD Gege Douglas MD Phone: [phone]
[2021-07-24] MEDS: ACETAMINOPHEN 325 MG TABLET 975 MG PO (08:02)
[2021-07-24] MEDS: LACTATED RINGERS 1,000 ML 42 ML IV (08:04)
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
--- NOTE | 2021-07-24 08:58 | SUR.OPER ---
Lithotomy on padded OR bed, head on pillow, arms secured on padded arm boards at <90 degrees abduction. Legs secured in padded yellow fins stirrups.
--- NOTE | 2021-07-24 09:34 | PM.GYNOP.1 ---
Operative Date/Time/Diagnoses Date of procedure: 07/24/21 Time of procedure: 08:45 Pre-op diagnosis: menorrhagia Post-op diagnosis: same Procedure & Clinicians Procedure: Procedures Operation Date: 07/24/21 08:45 Actual Procedure Side Surgeon p Operative Hysteroscopy D&C Prisca Martinez MD Indications: menorrhagia Surgeon: Prisca Martinez Anesthesia Type: MAC +/- Operative Notes Findings: Normal vulva, vagina and cervix. Intrauterine findings as above. Specimen(s): endometrial curettings Estimated blood loss (mL): 5 Procedure in detail: After informed consent was obtained, the patient was taken to the operating room. MAC was obtained and an LMA placed, and she was placed in the dorsal lithotomy position and prepped and draped in the usual sterile fashion. The bladder was drained via straight cath as part of this prep. A speculum was placed in the vagina and the cervix visualized and grasped with a single toothed tenaculum. Hegar dilators were used to dilate the cervix to 7mm, and a diagnostic hysteroscope was inserted with only minimal pressure necessary. The upper part of the endometrial cavity appeared atrophic, but the lower portion had thick glandular tissue circumferentially with small areas of calcification. The hysteroscope was removed, and a sharp curettage performed with removal of a significant amount of tissue. Curettage continued until a gritty texture was noted throughout the cavity. The tenaculum was removed with spontaneous hemostasis noted, and the speculum removed. The patient tolerated the procedure well and was taken to the PACU in stable condition. IVF: 300ccs LR Fluid deficit: 50ccs NS Complications: none Post-operative Condition: stable Disposition: PACU Plan for aftercare: Routine postop care
== END 2021-07-24 10:47 | disposition home or self-care (01) ==
PROVIDERS: Family Provider Registered Nurse Diabetes Educator; PCP Registered Nurse Diabetes Educator; Referring Provider Obstetrics & Gynecology; Visit Provider Obstetrics & Gynecology
PROC: 0UDB8ZZ Extraction of Endometrium, Via Natural or Artificial Opening Endoscopic (ICD-10-PCS; CPT 58558; principal; 2021-07-24 08:45)
DX: N92.0 Excessive and frequent menstruation with regular cycle (principal)
CPT/HCPCS: 58558; 81025; J0330; J1100; J1885; J2250; J2405; J2704; J3010

== ENCOUNTER 2021-08-11 08:15 | Outpatient (RCR) | payer OTHER, MEDICAID, SELFPAY ==
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
--- NOTE | 2021-07-10 16:00 | PT.OPPOC ---
Physical, Occupational & Speech Therapy At [facility] Current Diagnoses Pain in right shoulder (07/10/21) Pain in right knee (07/10/21) Pain in right ankle and joints of right foot (07/10/21) Pain in right leg (07/10/21) Paresthesia of skin (07/10/21) Visit Care Team Role Provider Type KWAME Bull Attending Provider Advanced Newspaper Copy Editor Family Provider Primary Care Provider Referring Provider Specialty: Medical Address: [address] [place] [address] Email: [email or web address] Plan Of Care PT-OP-T Assessment and Plan Start: 07/07/21 14:04 Freq: Status: Active Protocol: Document 07/10/21 11:15 AMB (Rec: 07/11/21 10:41 AMB [id number]) Physical Therapy Assessment Rehab Potential Rehabilitation Potential Good Evaluation Complexity Number of Personal Factors/Comorbidities 3 or More Number of Body Systems Impaired 4 or More Clinical Presentation at Evaluation Evolving Impairments Impairments Activity Tolerance,Balance, Functional Activities,Gait, Pain,Posture,ROM,Sensation, Strength Goals Knee Short Term Goal (STG) Danica will ascend and descend 1 flight of stairs with an alternating gait pattern and pain less than 5/10. STG Duration 4 weeks Information Developer Goal (LTG) Danica will improve her knee flexion to at least 110 degrees. LTG Duration 8 weeks Ankle Short Term Goal (STG) Danica will improve her ankle stability as shown by improved balance of maintaining single leg stance for 10 seconds or greater. STG Duration 4 weeks [facility] Goal (LTG) Danica will show improved ankle strength by performing 5 single leg heel raises. LTG Duration 8 weeks Shoulder Short Term Goal (STG) Danica will improve her shoulder flexion to at least 120 degrees. STG Duration 4 weeks [facility] Goal (LTG) Danica will reach overhead to lift a plate out of a cabinet with 5/10 shoulder pain or less. LTG Duration 8 weeks Assessment Summary Assessment Danica attends PT with chronic right sided pain that negatively impacts her ability to walk, sleep, and reach. She has impaired balance, strength, and range of motion. She also has chronic back/ hip pain, but the focus of this bout of PT will be her right sided extremity pain. Given her insurance restrictions we will focus on a home exercise program, self care, body mechanics, and generally work that she can do at home to lessen her pain. Physical Therapy Plan Frequency and Duration Frequency of Treatment 2x/Week Duration of Treatment 8 weeks Plan of Care Start Date 07/10/21 Plan of Care End Date 09/04/21 Therapeutic Interventions Therapeutic Interventions Balance Training,Gait Training ,Home Exercise Program,Joint Mobilizations,Manual Therapy, Neuromuscular Re-education, Self-Care/Home Management, Therapeutic Activities, Therapeutic Exercises Modalities Cold Pack/Ice Massage,Electric Stimulation,Hot Packs Next Visit Focus/Plan Next Note Type Treatment Note Next Visit Plan follow up on HEP: balance, shoulder flexion, heel raises Plan of Care Dates Plan of Care Start Date 07/10/21 Plan of Care End Date 09/04/21 Electronically Signed by: Hallie Cedeno, PT 07/11/21 [id number] If you are in agreement with this Plan of Care, please return a signed and dated copy. I have reviewed this Plan of Care and certify that the skilled therapy services above are required to meet the patient?s needs. Physician Signature Date Printed Name and Credentials Clinical Instructor Signature Printed Name and Credentials
--- NOTE | 2021-07-14 11:03 | PT.OTN ---
Current Diagnoses Pain in right shoulder (07/14/21) Pain in right knee (07/14/21) Pain in right ankle and joints of right foot (07/14/21) Pain in right leg (07/14/21) Paresthesia of skin (07/14/21) Physical Therapy Treatment Note PT-OP-A Visit Information Start: 07/07/21 14:04 Freq: Status: Active Protocol: Document 07/14/21 09:00 AMB (Rec: 07/14/21 09:50 AMB [id number]) Out-Patient Physical Therapy Visit Information Visit Information Visit Type Treatment Note Visit Start Time 09:00 Visit Stop Time 09:45 Total Visit Minutes 45 Visit Number 2 PT-OP-B Current Condition Start: 07/07/21 14:04 Freq: Status: Active Protocol: Document 07/10/21 11:21 AMB (Rec: 07/10/21 11:32 AMB [id number]) Current Condition History of Current Condition Onset Date chronic Current Complaints R knee, ankle, shoulder History of Current Condition Chronic right ankle sprains, right knee pain, right shoulder pain all long history . Stairs hurt the knee and the ankle. Sleeping on the shoulder, raising the arm above shoulder height. Sleep is a challenge because of the pain. 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 Doctors are considering fibromyalgia, going to start on gabapentin and see if that helps. Treatment Goals Patient/Caregiver Goals Be able to hike short distances - currently painful in knee/back/hip/ankle and does get SOB. Prior Functional Status Baseline Function- ADL's Modified Independent Baseline Function- Mobility Modified Independent Current Functional Impairments (Reported) Functional Limitations- ADL's walking/stairs limited, limited to reaching to about shoulder height. Personal Factors Other Personal Factors That May Effect trauma history, long chronic Therapy/Recovery pain history, hypertesnion, hypothyroid, anxiety PT-OP-C Subjective Start: 07/07/21 14:04 Freq: Status: Active Protocol: Document 07/14/21 09:00 AMB (Rec: 07/14/21 09:50 AMB [id number]) OP-PT Subjective Patient Comments Patient Comments Danica did not experience any increased soreness after last visit. Heel raises are painful in the ankle, but shoulder stretch and balance exercises are ok. PT-OP-G Mobility & Gait Start: 07/07/21 14:04 Freq: Status: Active Protocol: Document 07/10/21 11:15 AMB (Rec: 07/11/21 10:42 AMB [id number]) OP Gait Assessment Comments Gait Comments WBOS, reduced trunk rotation, reduce push off on the right PT-OP-J Posture/Palpation/Skin Start: 07/07/21 14:04 Freq: Status: Active Protocol: Document 07/10/21 11:15 AMB (Rec: 07/11/21 10:41 AMB [id number]) Palpation Assessment Location One Palpation Location right shoulder, knee, ankle Palpation Details Pain at medial malleolus, acriomial process and medial and lateral tibiofemoral joint lines PT-OP-K Range of Motion Start: 07/07/21 14:04 Freq: Status: Active Protocol: Document 07/10/21 11:15 AMB (Rec: 07/11/21 10:41 AMB [id number]) Shoulder Goniometric Range of Motion Shoulder Right Passive Testing Position Supine Flexion 106 Abduction 90 Internal Rotation Behind Back (text) L1 Comments external rotation to C7 but doesn't actually rotate elbow out as this increases pain Knee Goniometric Range of Motion Knee Right Flexion Passive (degrees) 97 Comments swelling in posterior knee Left Flexion Passive (degrees) 130 PT-OP-M Strength Start: 07/07/21 14:04 Freq: Status: Active Protocol: Document 07/10/21 11:15 AMB (Rec: 07/11/21 10:41 AMB [id number]) Ankle/Foot Strength Ankle and Foot Manual Muscle Testing Right Comments unable to perform full single leg heel raise PT-OP-Q Treatments Start: 07/07/21 14:04 Freq: Status: Active Protocol: Document 07/14/21 09:00 AMB (Rec: 07/14/21 09:50 AMB [id number]) Therapeutic Exercises Supine Exercises SLR Reps/Minutes 10 Comments cue TA ankle PF/inversion Supine Exercise Name t band Resistance #3 band Comments 2x10 ea IT band stretch Reps/Minutes 30x2 Sitting Exercises pilo Sitting Exercise Name fwd, scaption Reps/Minutes 10 Standing Exercises rows Reps/Minutes 2x10 PT-OP-T Assessment and Plan Start: 07/07/21 14:04 Freq: Status: Active Protocol: Document 07/14/21 09:00 AMB (Rec: 07/14/21 09:50 AMB [id number]) Physical Therapy Assessment Goals Knee Short Term Goal (STG) Danica will ascend and descend 1 flight of stairs with an alternating gait pattern and pain less than 5/10. STG Duration 4 weeks [facility] Goal (LTG) Danica will improve her knee flexion to at least 110 degrees. LTG Duration 8 weeks Ankle Short Term Goal (STG) Danica will improve her ankle stability as shown by improved balance of maintaining single leg stance for 10 seconds or greater. STG Duration 4 weeks [facility] Goal (LTG) Danica will show improved ankle strength by performing 5 single leg heel raises. LTG Duration 8 weeks Shoulder Short Term Goal (STG) Danica will improve her shoulder flexion to at least 120 degrees. STG Duration 4 weeks [facility] Goal (LTG) Danica will reach overhead to lift a plate out of a cabinet with 5/10 shoulder pain or less. LTG Duration 8 weeks Assessment Summary Assessment Danica was having pain with heel raises, so decreased resistance to t band plantarflexion. Tolerated t band shoulder exercises well, back and hip do limit tolerance for knee exercises. Physical Therapy Plan Next Visit Focus/Plan Next Note Type Treatment Note Next Visit Plan follow up on HEP: balance, shoulder flexion,t band rows, ankle PF/inversion, IT band stretch, SLR
--- NOTE | 2021-07-16 11:17 | PT.OTN ---
Current Diagnoses Pain in right shoulder (07/16/21) Pain in right knee (07/16/21) Pain in right ankle and joints of right foot (07/16/21) Pain in right leg (07/16/21) Paresthesia of skin (07/16/21) Physical Therapy Treatment Note PT-OP-A Visit Information Start: 07/07/21 14:04 Freq: Status: Active Protocol: Document 07/16/21 10:28 MA (Rec: 07/16/21 11:16 MA [id number]) Out-Patient Physical Therapy Visit Information Visit Information Visit Type Treatment Note Visit Start Time 10:30 Visit Stop Time 11:10 Total Visit Minutes 40 Visit Number 3 Number of GEOTHERMAL FIELD TECHNICIAN Visits 1 PT-OP-B Current Condition Start: 07/07/21 14:04 Freq: Status: Active Protocol: Document 07/10/21 11:21 AMB (Rec: 07/10/21 11:32 AMB [id number]) Current Condition History of Current Condition Onset Date chronic Current Complaints R knee, ankle, shoulder History of Current Condition Chronic right ankle sprains, right knee pain, right shoulder pain all long history . Stairs hurt the knee and the ankle. Sleeping on the shoulder, raising the arm above shoulder height. Sleep is a challenge because of the pain. 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 Doctors are considering fibromyalgia, going to start on gabapentin and see if that helps. Treatment Goals Patient/Caregiver Goals Be able to hike short distances - currently painful in knee/back/hip/ankle and does get SOB. Prior Functional Status Baseline Function- ADL's Modified Independent Baseline Function- Mobility Modified Independent Current Functional Impairments (Reported) Functional Limitations- ADL's walking/stairs limited, limited to reaching to about shoulder height. Personal Factors Other Personal Factors That May Effect trauma history, long chronic Therapy/Recovery pain history, hypertesnion, hypothyroid, anxiety PT-OP-C Subjective Start: 07/07/21 14:04 Freq: Status: Active Protocol: Document 07/16/21 10:28 MA (Rec: 07/16/21 11:16 MA [id number]) OP-PT Subjective Patient Comments Patient Comments Pt states the R knee and foot are the most painful today. PT-OP-G Mobility & Gait Start: 07/07/21 14:04 Freq: Status: Active Protocol: Document 07/10/21 11:15 AMB (Rec: 07/11/21 10:42 AMB [id number]) OP Gait Assessment Comments Gait Comments WBOS, reduced trunk rotation, reduce push off on the right PT-OP-J Posture/Palpation/Skin Start: 07/07/21 14:04 Freq: Status: Active Protocol: Document 07/10/21 11:15 AMB (Rec: 07/11/21 10:41 AMB [id number]) Palpation Assessment Location One Palpation Location right shoulder, knee, ankle Palpation Details Pain at medial malleolus, acriomial process and medial and lateral tibiofemoral joint lines PT-OP-K Range of Motion Start: 07/07/21 14:04 Freq: Status: Active Protocol: Document 07/10/21 11:15 AMB (Rec: 07/11/21 10:41 AMB [id number]) Shoulder Goniometric Range of Motion Shoulder Right Passive Testing Position Supine Flexion 106 Abduction 90 Internal Rotation Behind Back (text) L1 Comments external rotation to C7 but doesn't actually rotate elbow out as this increases pain Knee Goniometric Range of Motion Knee Right Flexion Passive (degrees) 97 Comments swelling in posterior knee Left Flexion Passive (degrees) 130 PT-OP-M Strength Start: 07/07/21 14:04 Freq: Status: Active Protocol: Document 07/10/21 11:15 AMB (Rec: 07/11/21 10:41 AMB [id number]) Ankle/Foot Strength Ankle and Foot Manual Muscle Testing Right Comments unable to perform full single leg heel raise PT-OP-Q Treatments Start: 07/07/21 14:04 Freq: Status: Active Protocol: Document 07/16/21 10:28 MA (Rec: 07/16/21 11:16 MA [id number]) Therapeutic Exercises Supine Exercises ankle PF/inversion Supine Exercise Name t band Resistance #3 band Comments 2x10 ea Sitting Exercises pilo Sitting Exercise Name fwd, scaption Reps/Minutes 10 Standing Exercises rows Reps/Minutes 2x10 table flexion Standing Exercise Name shoulder Side bilateral Reps/Minutes 10x5 Other Exercises Self-STM Other Exercise Name 1. tennis ball to arch 2. rolling pin to adductors Manual Therapy Treatment Soft Tissue Mobilization UT, RHomboids, RTC Mobilization Type Myofascial Release,Sustained Pressure,Trigger Point Release Intensity/Depth Moderate Body Position Sidelying Joint Mobilizations talocrual Joint R Direction A/P Grade II Body Position Supine Self-Care/Home Management Treatment Education Patient Education Pain Management Other Education Educated pt on using frozen water bottle or small hard ball for STM to arch of foot to decrease foot and ankle pain and using a rolling pin to mm of right leg to decrease medial knee pain. PT-OP-T Assessment and Plan Start: 07/07/21 14:04 Freq: Status: Active Protocol: Document 07/16/21 10:28 MA (Rec: 07/16/21 11:16 MA [id number]) Physical Therapy Assessment Goals Knee Short Term Goal (STG) Danica will ascend and descend 1 flight of stairs with an alternating gait pattern and pain less than 5/10. STG Duration 4 weeks Half-Way Goal (LTG) Danica will improve her knee flexion to at least 110 degrees. LTG Duration 8 weeks Ankle Short Term Goal (STG) Danica will improve her ankle stability as shown by improved balance of maintaining single leg stance for 10 seconds or greater. STG Duration 4 weeks Half-Way Goal (LTG) Danica will show improved ankle strength by performing 5 single leg heel raises. LTG Duration 8 weeks Shoulder Short Term Goal (STG) Danica will improve her shoulder flexion to at least 120 degrees. STG Duration 4 weeks Half-Way Goal (LTG) Danica will reach overhead to lift a plate out of a cabinet with 5/10 shoulder pain or less. LTG Duration 8 weeks Assessment Summary Assessment Educated pt on pain management techniques for home such as icing shd & knee, using a frozen water bottle or small hard ball to arch of foot to decrease foot and ankle pain, and using a muscle roller to roll out adductors and quads to reduce medial knee pain. She has decreased R ankle PF and DF especially when performing PF with t-band. Will continue working on ankle strength and ROM next session . Physical Therapy Plan Frequency and Duration Frequency of Treatment 2x/Week Duration of Treatment 8 weeks Plan of Care Start Date 07/10/21 Plan of Care End Date 09/04/21 Therapeutic Interventions Therapeutic Interventions Balance Training,Gait Training ,Home Exercise Program,Joint Mobilizations,Manual Therapy, Neuromuscular Re-education, Self-Care/Home Management, Therapeutic Activities, Therapeutic Exercises Modalities Cold Pack/Ice Massage,Electric Stimulation,Hot Packs Next Visit Focus/Plan Next Note Type Treatment Note Next Visit Plan follow up on HEP: balance, shoulder flexion,t band rows, ankle PF/inversion, IT band stretch, SLR. COnsider adding resisted DF for improving strength and AROM
--- NOTE | 2021-07-23 10:16 | PT.OTN ---
Current Diagnoses Pain in right shoulder (07/23/21) Pain in right knee (07/23/21) Pain in right ankle and joints of right foot (07/23/21) Pain in right leg (07/23/21) Paresthesia of skin (07/23/21) Physical Therapy Treatment Note PT-OP-A Visit Information Start: 07/07/21 14:04 Freq: Status: Active Protocol: Document 07/23/21 09:26 MA (Rec: 07/23/21 10:16 MA [id number]) Out-Patient Physical Therapy Visit Information Visit Information Visit Type Treatment Note Visit Start Time 09:30 Visit Stop Time 10:10 Total Visit Minutes 40 Visit Number 4 Number of BROACH SETTER Visits 2 PT-OP-B Current Condition Start: 07/07/21 14:04 Freq: Status: Active Protocol: Document 07/10/21 11:21 AMB (Rec: 07/10/21 11:32 AMB [id number]) Current Condition History of Current Condition Onset Date chronic Current Complaints R knee, ankle, shoulder History of Current Condition Chronic right ankle sprains, right knee pain, right shoulder pain all long history . Stairs hurt the knee and the ankle. Sleeping on the shoulder, raising the arm above shoulder height. Sleep is a challenge because of the pain. 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 Doctors are considering fibromyalgia, going to start on gabapentin and see if that helps. Treatment Goals Patient/Caregiver Goals Be able to hike short distances - currently painful in knee/back/hip/ankle and does get SOB. Prior Functional Status Baseline Function- ADL's Modified Independent Baseline Function- Mobility Modified Independent Current Functional Impairments (Reported) Functional Limitations- ADL's walking/stairs limited, limited to reaching to about shoulder height. Personal Factors Other Personal Factors That May Effect trauma history, long chronic Therapy/Recovery pain history, hypertesnion, hypothyroid, anxiety PT-OP-C Subjective Start: 07/07/21 14:04 Freq: Status: Active Protocol: Document 07/23/21 09:26 MA (Rec: 07/23/21 10:16 MA [id number]) OP-PT Subjective Patient Comments Patient Comments The inside and outside of my R knee hurts. Pt also states she has surgery on her uterus tomorrow. PT-OP-G Mobility & Gait Start: 07/07/21 14:04 Freq: Status: Active Protocol: Document 07/10/21 11:15 AMB (Rec: 07/11/21 10:42 AMB [id number]) OP Gait Assessment Comments Gait Comments WBOS, reduced trunk rotation, reduce push off on the right PT-OP-J Posture/Palpation/Skin Start: 07/07/21 14:04 Freq: Status: Active Protocol: Document 07/10/21 11:15 AMB (Rec: 07/11/21 10:41 AMB [id number]) Palpation Assessment Location One Palpation Location right shoulder, knee, ankle Palpation Details Pain at medial malleolus, acriomial process and medial and lateral tibiofemoral joint lines PT-OP-K Range of Motion Start: 07/07/21 14:04 Freq: Status: Active Protocol: Document 07/10/21 11:15 AMB (Rec: 07/11/21 10:41 AMB [id number]) Shoulder Goniometric Range of Motion Shoulder Right Passive Testing Position Supine Flexion 106 Abduction 90 Internal Rotation Behind Back (text) L1 Comments external rotation to C7 but doesn't actually rotate elbow out as this increases pain Knee Goniometric Range of Motion Knee Right Flexion Passive (degrees) 97 Comments swelling in posterior knee Left Flexion Passive (degrees) 130 PT-OP-M Strength Start: 07/07/21 14:04 Freq: Status: Active Protocol: Document 07/10/21 11:15 AMB (Rec: 07/11/21 10:41 AMB [id number]) Ankle/Foot Strength Ankle and Foot Manual Muscle Testing Right Comments unable to perform full single leg heel raise PT-OP-Q Treatments Start: 07/07/21 14:04 Freq: Status: Active Protocol: Document 07/23/21 09:26 MA (Rec: 07/23/21 10:16 MA [id number]) Therapeutic Exercises Supine Exercises DF Supine Exercise Name t band Equipment Used #3 Reps/Minutes 2x10 ea ankle PF/inversion Supine Exercise Name t band Resistance #3 band Comments 2x10 ea Standing Exercises TKE Side right Reps/Minutes 10x5 SH Manual Therapy Treatment Soft Tissue Mobilization R LE Body Location Adductors, ITB, Quads, glute med Mobilization Type Rolling,Sustained Pressure, Trigger Point Release Intensity/Depth Moderate Body Position Hooklying Neuro Re-Education Treatment Balance Activities SLS Details modified SLS Equipment blue osvaldo disc Reps/Duration x1' ea Comments one foot on osvaldo disc, other on floor semi tandem balance Reps/Duration 30 Comments HEP PT-OP-T Assessment and Plan Start: 07/07/21 14:04 Freq: Status: Active Protocol: Document 07/23/21 09:26 MA (Rec: 07/23/21 10:16 MA [id number]) Physical Therapy Assessment Goals Knee Short Term Goal (STG) Danica will ascend and descend 1 flight of stairs with an alternating gait pattern and pain less than 5/10. STG Duration 4 weeks Job Setter Goal (LTG) Danica will improve her knee flexion to at least 110 degrees. LTG Duration 8 weeks Ankle Short Term Goal (STG) Danica will improve her ankle stability as shown by improved balance of maintaining single leg stance for 10 seconds or greater. STG Duration 4 weeks Job Setter Goal (LTG) Danica will show improved ankle strength by performing 5 single leg heel raises. LTG Duration 8 weeks Shoulder Short Term Goal (STG) Danica will improve her shoulder flexion to at least 120 degrees. STG Duration 4 weeks Job Setter Goal (LTG) Danica will reach overhead to lift a plate out of a cabinet with 5/10 shoulder pain or less. LTG Duration 8 weeks Assessment Summary Assessment During balance exercises, Danica has difficulty holding quad contraction on R side and knee often fer. Performed TKE with resistance to improve quad strength and instructed pt to continue with SLR exercise at home ensuring full knee extension when lifting. She has used rolling pin and frozen water bottle for pain management at home after discussion during previous PT session and feels both are helping. Physical Therapy Plan Frequency and Duration Frequency of Treatment 2x/Week Duration of Treatment 8 weeks Plan of Care Start Date 07/10/21 Plan of Care End Date 09/04/21 Therapeutic Interventions Therapeutic Interventions Balance Training,Gait Training ,Home Exercise Program,Joint Mobilizations,Manual Therapy, Neuromuscular Re-education, Self-Care/Home Management, Therapeutic Activities, Therapeutic Exercises Modalities Cold Pack/Ice Massage,Electric Stimulation,Hot Packs Next Visit Focus/Plan Next Note Type Treatment Note Next Visit Plan HEP: balance, shoulder flexion ,t band rows, ankle PF/ inversion, IT band stretch, SLR. Provide print out of DF for HEP next session and continue with TKE for improving quad strength
--- NOTE | 2021-07-30 11:03 | PT.OTN ---
Current Diagnoses Pain in right shoulder (07/30/21) Pain in right knee (07/30/21) Pain in right ankle and joints of right foot (07/30/21) Pain in right leg (07/30/21) Paresthesia of skin (07/30/21) Physical Therapy Treatment Note PT-OP-A Visit Information Start: 07/07/21 14:04 Freq: Status: Active Protocol: Document 07/30/21 10:16 MA (Rec: 07/30/21 11:03 MA [id number]) Out-Patient Physical Therapy Visit Information Visit Information Visit Type Treatment Note Visit Start Time 10:15 Visit Stop Time 10:55 Total Visit Minutes 40 Visit Number 5 Number of WOOD CASKET ASSEMBLER Visits 3 PT-OP-B Current Condition Start: 07/07/21 14:04 Freq: Status: Active Protocol: Document 07/10/21 11:21 AMB (Rec: 07/10/21 11:32 AMB [id number]) Current Condition History of Current Condition Onset Date chronic Current Complaints R knee, ankle, shoulder History of Current Condition Chronic right ankle sprains, right knee pain, right shoulder pain all long history . Stairs hurt the knee and the ankle. Sleeping on the shoulder, raising the arm above shoulder height. Sleep is a challenge because of the pain. 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 Doctors are considering fibromyalgia, going to start on gabapentin and see if that helps. Treatment Goals Patient/Caregiver Goals Be able to hike short distances - currently painful in knee/back/hip/ankle and does get SOB. Prior Functional Status Baseline Function- ADL's Modified Independent Baseline Function- Mobility Modified Independent Current Functional Impairments (Reported) Functional Limitations- ADL's walking/stairs limited, limited to reaching to about shoulder height. Personal Factors Other Personal Factors That May Effect trauma history, long chronic Therapy/Recovery pain history, hypertesnion, hypothyroid, anxiety PT-OP-C Subjective Start: 07/07/21 14:04 Freq: Status: Active Protocol: Document 07/30/21 10:16 MA (Rec: 07/30/21 11:03 MA [id number]) OP-PT Subjective Patient Comments Patient Comments After uterine surgery pt could not move for three days due to shd/neck/back pain from positioning during surgery. PT-OP-G Mobility & Gait Start: 07/07/21 14:04 Freq: Status: Active Protocol: Document 07/10/21 11:15 AMB (Rec: 07/11/21 10:42 AMB [id number]) OP Gait Assessment Comments Gait Comments WBOS, reduced trunk rotation, reduce push off on the right PT-OP-J Posture/Palpation/Skin Start: 07/07/21 14:04 Freq: Status: Active Protocol: Document 07/10/21 11:15 AMB (Rec: 07/11/21 10:41 AMB [id number]) Palpation Assessment Location One Palpation Location right shoulder, knee, ankle Palpation Details Pain at medial malleolus, acriomial process and medial and lateral tibiofemoral joint lines PT-OP-K Range of Motion Start: 07/07/21 14:04 Freq: Status: Active Protocol: Document 07/10/21 11:15 AMB (Rec: 07/11/21 10:41 AMB [id number]) Shoulder Goniometric Range of Motion Shoulder Right Passive Testing Position Supine Flexion 106 Abduction 90 Internal Rotation Behind Back (text) L1 Comments external rotation to C7 but doesn't actually rotate elbow out as this increases pain Knee Goniometric Range of Motion Knee Right Flexion Passive (degrees) 97 Comments swelling in posterior knee Left Flexion Passive (degrees) 130 PT-OP-M Strength Start: 07/07/21 14:04 Freq: Status: Active Protocol: Document 07/10/21 11:15 AMB (Rec: 07/11/21 10:41 AMB [id number]) Ankle/Foot Strength Ankle and Foot Manual Muscle Testing Right Comments unable to perform full single leg heel raise PT-OP-Q Treatments Start: 07/07/21 14:04 Freq: Status: Active Protocol: Document 07/30/21 10:16 MA (Rec: 07/30/21 11:03 MA [id number]) Therapeutic Exercises Supine Exercises DF Supine Exercise Name t band Equipment Used #3 Reps/Minutes 2x10 ea ankle PF/inversion Supine Exercise Name t band Resistance #3 band Comments 2x10 ea IT band stretch Reps/Minutes 30x2 Standing Exercises Step Ups Side bilateral Equipment Used 4 step Reps/Minutes x10 ea Comments working on neutral alignment of RLE TKE Side right Reps/Minutes 10x5 SH rows Reps/Minutes 2x10 Manual Therapy Treatment Soft Tissue Mobilization R LE Body Location ITB, glutes, quads Mobilization Type Rolling,Sustained Pressure, Trigger Point Release Intensity/Depth Moderate Body Position Hooklying UT, RHomboids, RTC Mobilization Type Cross-Friction,Myofascial Release,Sustained Pressure, Trigger Point Release Intensity/Depth Moderate Body Position Supine PT-OP-T Assessment and Plan Start: 07/07/21 14:04 Freq: Status: Active Protocol: Document 07/30/21 10:16 MA (Rec: 07/30/21 11:03 MA [id number]) Physical Therapy Assessment Goals Knee Short Term Goal (STG) Danica will ascend and descend 1 flight of stairs with an alternating gait pattern and pain less than 5/10. STG Duration 4 weeks Group Home Goal (LTG) Danica will improve her knee flexion to at least 110 degrees. LTG Duration 8 weeks Ankle Short Term Goal (STG) Danica will improve her ankle stability as shown by improved balance of maintaining single leg stance for 10 seconds or greater. STG Duration 4 weeks Manufacturing Technologist Goal (LTG) Danica will show improved ankle strength by performing 5 single leg heel raises. LTG Duration 8 weeks Shoulder Short Term Goal (STG) Danica will improve her shoulder flexion to at least 120 degrees. STG Duration 4 weeks Manufacturing Technologist Goal (LTG) Danica will reach overhead to lift a plate out of a cabinet with 5/10 shoulder pain or less. LTG Duration 8 weeks Assessment Summary Assessment Pt is able to tolerate more pressure during STM today. She has improved knee pain after STM but some pain returns to R knee during step ups. When pt is manually cued for better alignment of R knee to avoid adduction, pain improves. Added TKE and resisted DF to HEP this session to continue strenthening pt's RLE to decrease pain. Physical Therapy Plan Frequency and Duration Frequency of Treatment 2x/Week Duration of Treatment 8 weeks Plan of Care Start Date 07/10/21 Plan of Care End Date 09/04/21 Therapeutic Interventions Therapeutic Interventions Balance Training,Gait Training ,Home Exercise Program,Joint Mobilizations,Manual Therapy, Neuromuscular Re-education, Self-Care/Home Management, Therapeutic Activities, Therapeutic Exercises Modalities Cold Pack/Ice Massage,Electric Stimulation,Hot Packs Next Visit Focus/Plan Next Note Type Treatment Note Next Visit Plan Begin balance exercises and continue with TKE and step ups progressing from 4 to 6 step as tolerated. HEP: balance, shoulder flexion ,t band rows, ankle PF/ inversion, DF, IT band stretch , SLR, and TKE.
--- NOTE | 2021-08-03 11:26 | PT.OTN ---
Current Diagnoses Pain in right shoulder (08/03/21) Pain in right knee (08/03/21) Pain in right ankle and joints of right foot (08/03/21) Pain in right leg (08/03/21) Paresthesia of skin (08/03/21) Physical Therapy Treatment Note PT-OP-A Visit Information Start: 07/07/21 14:04 Freq: Status: Active Protocol: Document 08/03/21 10:21 MA (Rec: 08/03/21 11:26 MA [id number]) Out-Patient Physical Therapy Visit Information Visit Information Visit Type Treatment Note Visit Start Time 10:20 Visit Stop Time 11:00 Total Visit Minutes 40 Visit Number 6 Number of SORTING LIVESTOCK WORKER Visits 4 PT-OP-B Current Condition Start: 07/07/21 14:04 Freq: Status: Active Protocol: Document 07/10/21 11:21 AMB (Rec: 07/10/21 11:32 AMB [id number]) Current Condition History of Current Condition Onset Date chronic Current Complaints R knee, ankle, shoulder History of Current Condition Chronic right ankle sprains, right knee pain, right shoulder pain all long history . Stairs hurt the knee and the ankle. Sleeping on the shoulder, raising the arm above shoulder height. Sleep is a challenge because of the pain. 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 Doctors are considering fibromyalgia, going to start on gabapentin and see if that helps. Treatment Goals Patient/Caregiver Goals Be able to hike short distances - currently painful in knee/back/hip/ankle and does get SOB. Prior Functional Status Baseline Function- ADL's Modified Independent Baseline Function- Mobility Modified Independent Current Functional Impairments (Reported) Functional Limitations- ADL's walking/stairs limited, limited to reaching to about shoulder height. Personal Factors Other Personal Factors That May Effect trauma history, long chronic Therapy/Recovery pain history, hypertesnion, hypothyroid, anxiety PT-OP-C Subjective Start: 07/07/21 14:04 Freq: Status: Active Protocol: Document 08/03/21 10:21 MA (Rec: 08/03/21 11:24 MA [id number]) OP-PT Subjective Patient Comments Patient Comments Danica states her Right ankle hurts mainly on the inside of her ankle. PT-OP-G Mobility & Gait Start: 07/07/21 14:04 Freq: Status: Active Protocol: Document 07/10/21 11:15 AMB (Rec: 07/11/21 10:42 AMB [id number]) OP Gait Assessment Comments Gait Comments WBOS, reduced trunk rotation, reduce push off on the right PT-OP-J Posture/Palpation/Skin Start: 07/07/21 14:04 Freq: Status: Active Protocol: Document 07/10/21 11:15 AMB (Rec: 07/11/21 10:41 AMB [id number]) Palpation Assessment Location One Palpation Location right shoulder, knee, ankle Palpation Details Pain at medial malleolus, acriomial process and medial and lateral tibiofemoral joint lines PT-OP-K Range of Motion Start: 07/07/21 14:04 Freq: Status: Active Protocol: Document 07/10/21 11:15 AMB (Rec: 07/11/21 10:41 AMB [id number]) Shoulder Goniometric Range of Motion Shoulder Right Passive Testing Position Supine Flexion 106 Abduction 90 Internal Rotation Behind Back (text) L1 Comments external rotation to C7 but doesn't actually rotate elbow out as this increases pain Knee Goniometric Range of Motion Knee Right Flexion Passive (degrees) 97 Comments swelling in posterior knee Left Flexion Passive (degrees) 130 PT-OP-M Strength Start: 07/07/21 14:04 Freq: Status: Active Protocol: Document 07/10/21 11:15 AMB (Rec: 07/11/21 10:41 AMB [id number]) Ankle/Foot Strength Ankle and Foot Manual Muscle Testing Right Comments unable to perform full single leg heel raise PT-OP-Q Treatments Start: 07/07/21 14:04 Freq: Status: Active Protocol: Document 08/03/21 10:21 MA (Rec: 08/03/21 11:24 MA [id number]) Therapeutic Exercises Supine Exercises Piriformis stretch Side bilateral Reps/Minutes 30x1 Comments modified DF Supine Exercise Name t band Equipment Used #3 Reps/Minutes 2x10 ea SLR Reps/Minutes 10 Comments cue TA ankle PF/inversion Supine Exercise Name t band Resistance #3 band Comments 1x10 ea IT band stretch Reps/Minutes 30x2 Standing Exercises TKE Side right Reps/Minutes 10x5 SH Other Exercises Self-STM Other Exercise Name Self-mob- talocrual with lvl 5 TB Side right Equipment Used lvl 5 TB Reps/Minutes 5x10 hold Manual Therapy Treatment Soft Tissue Mobilization R Foot Body Location Flexor hallucis longus, Plantar fascia, Peroneals Mobilization Type Cross-Friction,Myofascial Release Intensity/Depth Moderate Body Position Supine R LE Body Location ITB, glutes, quads Mobilization Type Rolling,Sustained Pressure, Trigger Point Release Intensity/Depth Moderate Body Position Supine Joint Mobilizations talocrual Direction a/p Grade II Body Position Supine PT-OP-T Assessment and Plan Start: 07/07/21 14:04 Freq: Status: Active Protocol: Document 08/03/21 10:21 MA (Rec: 08/03/21 11:24 MA [id number]) Physical Therapy Assessment Goals Knee Short Term Goal (STG) Danica will ascend and descend 1 flight of stairs with an alternating gait pattern and pain less than 5/10. STG Duration 4 weeks Derivatives Trader Goal (LTG) Danica will improve her knee flexion to at least 110 degrees. LTG Duration 8 weeks Ankle Short Term Goal (STG) Danica will improve her ankle stability as shown by improved balance of maintaining single leg stance for 10 seconds or greater. STG Duration 4 weeks Longterm Goal (LTG) Danica will show improved ankle strength by performing 5 single leg heel raises. LTG Duration 8 weeks Shoulder Short Term Goal (STG) Danica will improve her shoulder flexion to at least 120 degrees. STG Duration 4 weeks Derivatives Trader Goal (LTG) Danica will reach overhead to lift a plate out of a cabinet with 5/10 shoulder pain or less. LTG Duration 8 weeks Assessment Summary Assessment Pt reports decreased ankle pain and 'popping' after STM and mobs to R ankle. She demonstrates good form with new HEP exercises added last session and is having improved R quad contraction during SLR and TKE. Physical Therapy Plan Frequency and Duration Frequency of Treatment 2x/Week Duration of Treatment 8 weeks Plan of Care Start Date 07/10/21 Plan of Care End Date 09/04/21 Therapeutic Interventions Therapeutic Interventions Balance Training,Gait Training ,Home Exercise Program,Joint Mobilizations,Manual Therapy, Neuromuscular Re-education, Self-Care/Home Management, Therapeutic Activities, Therapeutic Exercises Modalities Cold Pack/Ice Massage,Electric Stimulation,Hot Packs Next Visit Focus/Plan Next Note Type Treatment Note Next Visit Plan Begin balance exercises and continue with TKE and step ups progressing from 4 to 6 step as tolerated. HEP: balance, shoulder flexion ,t band rows, ankle PF/ inversion, DF, IT band stretch , SLR, and TKE.
--- NOTE | 2021-08-11 10:19 | PT.OTN ---
Current Diagnoses Pain in right shoulder (08/11/21) Pain in right knee (08/11/21) Pain in right ankle and joints of right foot (08/11/21) Pain in right leg (08/11/21) Paresthesia of skin (08/11/21) Physical Therapy Treatment Note PT-OP-A Visit Information Start: 07/07/21 14:04 Freq: Status: Active Protocol: Document 08/11/21 08:23 AMB (Rec: 08/11/21 08:58 AMB [id number]) Out-Patient Physical Therapy Visit Information Visit Information Visit Type Treatment Note Visit Start Time 08:22 Visit Stop Time 09:00 Total Visit Minutes 38 Visit Number 7 PT-OP-B Current Condition Start: 07/07/21 14:04 Freq: Status: Active Protocol: Document 07/10/21 11:21 AMB (Rec: 07/10/21 11:32 AMB [id number]) Current Condition History of Current Condition Onset Date chronic Current Complaints R knee, ankle, shoulder History of Current Condition Chronic right ankle sprains, right knee pain, right shoulder pain all long history . Stairs hurt the knee and the ankle. Sleeping on the shoulder, raising the arm above shoulder height. Sleep is a challenge because of the pain. 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 Doctors are considering fibromyalgia, going to start on gabapentin and see if that helps. Treatment Goals Patient/Caregiver Goals Be able to hike short distances - currently painful in knee/back/hip/ankle and does get SOB. Prior Functional Status Baseline Function- ADL's Modified Independent Baseline Function- Mobility Modified Independent Current Functional Impairments (Reported) Functional Limitations- ADL's walking/stairs limited, limited to reaching to about shoulder height. Personal Factors Other Personal Factors That May Effect trauma history, long chronic Therapy/Recovery pain history, hypertesnion, hypothyroid, anxiety PT-OP-C Subjective Start: 07/07/21 14:04 Freq: Status: Active Protocol: Document 08/11/21 08:23 AMB (Rec: 08/12/21 10:13 AMB [id number]) OP-PT Subjective Patient Comments Patient Comments Feeling like she wants to focus on the knee at this point. shoulder and ankle are improving, but stairs are still a major problem for the knee feels like it will give way. PT-OP-G Mobility & Gait Start: 07/07/21 14:04 Freq: Status: Active Protocol: Document 07/10/21 11:15 AMB (Rec: 07/11/21 10:42 AMB [id number]) OP Gait Assessment Comments Gait Comments WBOS, reduced trunk rotation, reduce push off on the right PT-OP-J Posture/Palpation/Skin Start: 07/07/21 14:04 Freq: Status: Active Protocol: Document 07/10/21 11:15 AMB (Rec: 07/11/21 10:41 AMB [id number]) Palpation Assessment Location One Palpation Location right shoulder, knee, ankle Palpation Details Pain at medial malleolus, acriomial process and medial and lateral tibiofemoral joint lines PT-OP-K Range of Motion Start: 07/07/21 14:04 Freq: Status: Active Protocol: Document 07/10/21 11:15 AMB (Rec: 07/11/21 10:41 AMB [id number]) Shoulder Goniometric Range of Motion Shoulder Right Passive Testing Position Supine Flexion 106 Abduction 90 Internal Rotation Behind Back (text) L1 Comments external rotation to C7 but doesn't actually rotate elbow out as this increases pain Knee Goniometric Range of Motion Knee Right Flexion Passive (degrees) 97 Comments swelling in posterior knee Left Flexion Passive (degrees) 130 PT-OP-M Strength Start: 07/07/21 14:04 Freq: Status: Active Protocol: Document 07/10/21 11:15 AMB (Rec: 07/11/21 10:41 AMB [id number]) Ankle/Foot Strength Ankle and Foot Manual Muscle Testing Right Comments unable to perform full single leg heel raise PT-OP-Q Treatments Start: 07/07/21 14:04 Freq: Status: Active Protocol: Document 08/11/21 08:23 AMB (Rec: 08/11/21 08:58 AMB [id number]) Therapeutic Exercises Supine Exercises IT band stretch Reps/Minutes 30x2 Standing Exercises Step Ups Side bilateral Equipment Used 4 step Reps/Minutes x10 ea Comments partial working on neutral alignment of RLE TKE Side right Reps/Minutes 10x5 SH heel raises Side bilateral Reps/Minutes 10 Comments single leg with UE support Manual Therapy Treatment Soft Tissue Mobilization R LE Body Location ITB, glutes, quads Mobilization Type Rolling,Sustained Pressure, Trigger Point Release Intensity/Depth Moderate Body Position Supine Neuro Re-Education Treatment Balance Activities SLS Details modified SLS Reps/Duration x1' ea PT-OP-T Assessment and Plan Start: 07/07/21 14:04 Freq: Status: Active Protocol: Document 08/11/21 08:23 AMB (Rec: 08/11/21 08:58 AMB [id number]) Physical Therapy Assessment Goals Knee Short Term Goal (STG) Danica will ascend and descend 1 flight of stairs with an alternating gait pattern and pain less than 5/10. STG Duration 4 weeks Custodial Goal (LTG) Danica will improve her knee flexion to at least 110 degrees. LTG Duration MET 112 Ankle Short Term Goal (STG) Danica will improve her ankle stability as shown by improved balance of maintaining single leg stance for 10 seconds or greater. STG Duration 4 weeks Medical Advisor Goal (LTG) Danica will show improved ankle strength by performing 5 single leg heel raises. LTG Duration 8 weeks Shoulder Short Term Goal (STG) Danica will improve her shoulder flexion to at least 120 degrees. STG Duration MET Custodial Goal (LTG) Danica will reach overhead to lift a plate out of a cabinet with 5/10 shoulder pain or less. LTG Duration 8 weeks Assessment Summary Assessment Danica will be able to be seen for one more visit before she meets the maximum amount of physical therapy allowed by her insurance plan. At this point she wanted to focus on her knee. She is working on terminal knee extension with stairs. She has improved her ROM well, but to continues to be challenged by stairs and balance. Physical Therapy Plan Next Visit Focus/Plan Next Note Type Discharge Summary Next Visit Plan Finalize HEP, working on knee/ stairs
--- NOTE | 2021-10-01 08:03 | PT.OPDS ---
Current Diagnoses Pain in right shoulder (08/11/21) Pain in right knee (08/11/21) Pain in right ankle and joints of right foot (08/11/21) Pain in right leg (08/11/21) Paresthesia of skin (08/11/21) Visit Care Team Role Provider Type KWAME Bull Attending Provider Advanced Hair Boiler Operator Family Provider Primary Care Provider Referring Provider Specialty: Medical Address: [address] [place] [address], [facility] Email: [email or web address] Visit Number Visit Number 7 Discharge Summary PT-OP-B Current Condition Start: 07/07/21 14:04 Freq: Status: Active Protocol: Document 07/10/21 11:21 AMB (Rec: 07/10/21 11:32 AMB [id number]) Current Condition History of Current Condition Onset Date chronic Current Complaints R knee, ankle, shoulder History of Current Condition Chronic right ankle sprains, right knee pain, right shoulder pain all long history . Stairs hurt the knee and the ankle. Sleeping on the shoulder, raising the arm above shoulder height. Sleep is a challenge because of the pain. 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 Doctors are considering fibromyalgia, going to start on gabapentin and see if that helps. Treatment Goals Patient/Caregiver Goals Be able to hike short distances - currently painful in knee/back/hip/ankle and does get SOB. Prior Functional Status Baseline Function- ADL's Modified Independent Baseline Function- Mobility Modified Independent Current Functional Impairments (Reported) Functional Limitations- ADL's walking/stairs limited, limited to reaching to about shoulder height. Personal Factors Other Personal Factors That May Effect trauma history, long chronic Therapy/Recovery pain history, hypertesnion, hypothyroid, anxiety PT-OP-C Subjective Start: 07/07/21 14:04 Freq: Status: Active Protocol: Document 08/11/21 08:23 AMB (Rec: 08/12/21 10:13 AMB [id number]) OP-PT Subjective Patient Comments Patient Comments Feeling like she wants to focus on the knee at this point. shoulder and ankle are improving, but stairs are still a major problem for the knee feels like it will give way. PT-OP-G Mobility & Gait Start: 07/07/21 14:04 Freq: Status: Active Protocol: Document 07/10/21 11:15 AMB (Rec: 07/11/21 10:42 AMB [id number]) OP Gait Assessment Comments Gait Comments WBOS, reduced trunk rotation, reduce push off on the right PT-OP-J Posture/Palpation/Skin Start: 07/07/21 14:04 Freq: Status: Active Protocol: Document 07/10/21 11:15 AMB (Rec: 07/11/21 10:41 AMB [id number]) Palpation Assessment Location One Palpation Location right shoulder, knee, ankle Palpation Details Pain at medial malleolus, acriomial process and medial and lateral tibiofemoral joint lines PT-OP-K Range of Motion Start: 07/07/21 14:04 Freq: Status: Active Protocol: Document 07/10/21 11:15 AMB (Rec: 07/11/21 10:41 AMB [id number]) Shoulder Goniometric Range of Motion Shoulder Right Passive Testing Position Supine Flexion 106 Abduction 90 Internal Rotation Behind Back (text) L1 Comments external rotation to C7 but doesn't actually rotate elbow out as this increases pain Knee Goniometric Range of Motion Knee Right Flexion Passive (degrees) 97 Comments swelling in posterior knee Left Flexion Passive (degrees) 130 PT-OP-M Strength Start: 07/07/21 14:04 Freq: Status: Active Protocol: Document 07/10/21 11:15 AMB (Rec: 07/11/21 10:41 AMB [id number]) Ankle/Foot Strength Ankle and Foot Manual Muscle Testing Right Comments unable to perform full single leg heel raise PT-OP-T Assessment and Plan Start: 07/07/21 14:04 Freq: Status: Active Protocol: Document 10/01/21 08:01 AMB (Rec: 10/01/21 08:03 AMB [id number]) Physical Therapy Assessment Goals Knee Short Term Goal (STG) Danica will ascend and descend 1 flight of stairs with an alternating gait pattern and pain less than 5/10. STG Duration 4 weeks Hospital Coder Goal (LTG) Danica will improve her knee flexion to at least 110 degrees. LTG Duration MET 112 Ankle Short Term Goal (STG) Danica will improve her ankle stability as shown by improved balance of maintaining single leg stance for 10 seconds or greater. STG Duration 4 weeks Penitentiary Goal (LTG) Danica will show improved ankle strength by performing 5 single leg heel raises. LTG Duration 8 weeks Shoulder Short Term Goal (STG) Danica will improve her shoulder flexion to at least 120 degrees. STG Duration MET Hospital Coder Goal (LTG) Danica will reach overhead to lift a plate out of a cabinet with 5/10 shoulder pain or less. LTG Duration 8 weeks Assessment Summary Assessment Danica canceled her last remaining PT appointment and did not call to reschedule. At her last visit she was most concerned with her knee. She has improved her ROM in PT, but continued to have pain throughout her body. Physical Therapy Plan Discharge Physical Therapy Discharge Reasons No Longer Attending PT
== END 2021-10-05 14:32 ==
LOC: PHYS 08:15
PROVIDERS: Family Provider Registered Nurse Diabetes Educator; PCP Registered Nurse Diabetes Educator; Referring Provider Registered Nurse Diabetes Educator; Visit Provider Registered Nurse Diabetes Educator
DX: M79.604 Pain in right leg (principal); M25.511 Pain in right shoulder; M25.561 Pain in right knee; M25.571 Pain in right ankle and joints of right foot; R20.2 Paresthesia of skin
CPT/HCPCS: 97110; 97112; 97140; 97162

== ENCOUNTER → 2021-09-11 06:59 | Outpatient (CLI) | payer OTHER, MEDICAID, SELFPAY ==
[2021-09-11 08:00] LABS: Hematocrit 38.6 % (36-46); Hemoglobin 13.4 g/dL (12.0-16.0); Mean Corpuscular HGB Conc 34.8 % (30-36); Mean Corpuscular Hemoglobin 33.2 PG (26-34); Mean Corpuscular Volume 95.4 fL (80-100); Platelet Count 408 X10^3/uL (150-400); Red Blood Cell Count 4.05 X10^6/uL (4.0-5.2); Red Cell Distribution Width 13.5 % (11.6-14.8); White Blood Cell Count 8.7 X10^3/uL (4.5-11.0)
[2021-09-11 08:04] LABS: HEMOLYSIS < 15 (0-50); Iron 66 ug/dL (37-170)
[2021-09-11 08:06] LABS: Hemoglobin A1C% w Est Avg Glu 7.5 % (4.0-6.0)
[2021-09-11 08:10] LABS: Alanine Aminotransferase 21 IU/L (<35); Albumin 3.9 g/dL (3.5-5.0); Albumin Globulin Ratio 1.2 (1.0-2.8); Alkaline Phosphatase 81 U/L (38-126); Aspartate Aminotransferase 24 IU/L (14-36); BUN Creatinine Ratio 17.1 (6-22); Bilirubin Total 0.3 mg/dL (0.2-1.3); Blood Urea Nitrogen 18 mg/dL (7-17); C-Reactive Protein Quant 1.3 mg/dL (<1.0); Calcium 8.6 mg/dL (8.4-10.2); Carbon Dioxide 27 mmol/L (22-32); Chloride 104 mmol/L (98-107); Cholesterol 183 mg/dL (140-199); Estimated Glomerular Filt Rate > 60 mL/min (>60); Globulin 3.2 g/dL (1.7-4.1); Glucose 183 mg/dL (70-100); HDL Cholesterol 33 mg/dL (40-60); HEMOLYSIS < 15 (0-50); LDL Cholesterol Calculated 126 mg/dL (<100); Potassium 4.3 mmol/L (3.4-5.1); Sodium 137 mmol/L (137-145); Total Protein 7.1 g/dL (6.3-8.2); Triglycerides 120 mg/dL (35-150)
[2021-09-11 08:18] LABS: Percent Iron Saturation 22 % (15-50); Total Iron Binding Capacity 306 ug/dL (265-497); Transferrin 238 mg/dL (206-381)
[2021-09-11 08:23] LABS: Erythrocyte Sedimentation Rate 45 MM/HR (0-20)
[2021-09-11 08:34] LABS: TSH w/ Reflex to FT4 0.47 uIU/mL (0.47-4.68)
[2021-09-11 08:38] LABS: Ferritin 28 ng/mL (6-137)
[2021-09-11 11:58] LABS: Rheumatoid Factor < 8.6 IU/mL (<12.0)
[2021-09-15 22:43] LABS: CCP Antibodies IgG/IgA 7 units (0-19)
[2021-09-16 14:03] LABS: ANA Screen, IFA Negative (.)
== END ==
PROVIDERS: Family Provider Registered Nurse Diabetes Educator; PCP Registered Nurse Diabetes Educator; Referring Provider Registered Nurse Diabetes Educator; Visit Provider Registered Nurse Diabetes Educator
DX: D75.839 Thrombocytosis, unspecified (principal); E03.9 Hypothyroidism, unspecified; E61.1 Iron deficiency; E78.5 Hyperlipidemia, unspecified; M79.10 Myalgia, unspecified site; N18.31 Chronic kidney disease, stage 3a; R52 Pain, unspecified; R73.01 Impaired fasting glucose; R70.0 Elevated erythrocyte sedimentation rate
CPT/HCPCS: 36415; 80053; 80061; 82728; 83036; 83540; 83550; 84443; 85027; 85651; 86038; 86140; 86200; 86430

== ENCOUNTER → 2021-11-11 10:50 | Outpatient (CLI) | payer OTHER, MEDICAID, SELFPAY ==
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
== END ==
PROVIDERS: Family Provider Registered Nurse Diabetes Educator; PCP Registered Nurse Diabetes Educator; Referring Provider Registered Nurse Diabetes Educator; Visit Provider Registered Nurse Diabetes Educator
DX: E11.9 Type 2 diabetes mellitus without complications (principal); E78.5 Hyperlipidemia, unspecified; Z71.3 Dietary counseling and surveillance
CPT/HCPCS: G0108

== ENCOUNTER → 2021-12-08 08:05 | Outpatient (CLI) | payer OTHER, MEDICAID, SELFPAY ==
[2021-12-08 09:09] LABS: Hematocrit 38.8 % (36-46); Hemoglobin 13.6 g/dL (12.0-16.0); Mean Corpuscular HGB Conc 34.9 % (30-36); Mean Corpuscular Hemoglobin 33.5 PG (26-34); Mean Corpuscular Volume 95.9 fL (80-100); Platelet Count 438 X10^3/uL (150-400); Red Blood Cell Count 4.05 X10^6/uL (4.0-5.2); Red Cell Distribution Width 13.3 % (11.6-14.8); White Blood Cell Count 9.5 X10^3/uL (4.5-11.0)
[2021-12-08 09:16] LABS: Hemoglobin A1C% w Est Avg Glu 6.4 % (4.0-6.0)
[2021-12-08 09:24] LABS: Cholesterol 162 mg/dL (140-199); HDL Cholesterol 32 mg/dL (40-60); LDL Cholesterol Calculated 106 mg/dL (<100); Triglycerides 118 mg/dL (35-150)
[2021-12-09 08:18] LABS: C-Reactive Protein Quant 1.9 mg/dL (<1.0)
== END ==
PROVIDERS: Family Provider Registered Nurse Diabetes Educator; PCP Registered Nurse Diabetes Educator; Referring Provider Registered Nurse Diabetes Educator; Visit Provider Registered Nurse Diabetes Educator
DX: D75.839 Thrombocytosis, unspecified (principal); E11.9 Type 2 diabetes mellitus without complications; E78.5 Hyperlipidemia, unspecified; R70.0 Elevated erythrocyte sedimentation rate
CPT/HCPCS: 36415; 80061; 83036; 85027; 86140

== ENCOUNTER → 2021-12-10 15:26 | Outpatient (CLI) | payer OTHER, MEDICAID, SELFPAY ==
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
== END ==
PROVIDERS: Family Provider Registered Nurse Diabetes Educator; PCP Registered Nurse Diabetes Educator; Referring Provider Registered Nurse Diabetes Educator; Visit Provider Registered Nurse Diabetes Educator
DX: E11.9 Type 2 diabetes mellitus without complications (principal); Z79.84 Long term (current) use of oral hypoglycemic drugs; Z71.3 Dietary counseling and surveillance
CPT/HCPCS: G0108

== ENCOUNTER → 2021-12-31 14:00 | Outpatient (CLI) | payer OTHER, MEDICAID, SELFPAY ==
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
== END ==
PROVIDERS: Family Provider Registered Nurse Diabetes Educator; PCP Registered Nurse Diabetes Educator; Referring Provider Registered Nurse Diabetes Educator; Visit Provider Registered Nurse Diabetes Educator
DX: E11.9 Type 2 diabetes mellitus without complications (principal); Z79.84 Long term (current) use of oral hypoglycemic drugs; Z71.3 Dietary counseling and surveillance
CPT/HCPCS: G0108

== ENCOUNTER → 2022-01-19 09:12 | Outpatient (CLI) | payer OTHER, MEDICAID, SELFPAY ==
--- NOTE | 2022-01-20 16:53 | DIAB.FU ---
Diabetes Education Class Series: Diabetes Physiology and Medications Name: Danica Sr Date: 01/19/22 Time: [id number] Danica presents with daughter for class 2 of 3. She seems to have a good knowledge of when to check BG, goals for both BG and HgA1c. Class topics covered: ? Diabetes pathophysiology ? Discuss different types of diabetes ? Review criteria for diagnosing diabetes ? Review HgA1c measurement and associated blood sugars ? Review blood sugar monitoring safety, technique, and goals ? Discuss ways to reduce complications associated with diabetes, includes microvascular and macrovascular complications ? Review diabetes medications types, action, and side effects ? Health care visits recommended for people with T2DM ? Immunization recommended for people with T2DM ? SMART goals review Follow-up: 1:1 follow-up in 4 weeks Charity Lynn RDN, [facility] Registered Dietitian, Certified Diabetes Care and Criminal Investigative Agent [phone] [email or web address]
== END ==
PROVIDERS: Family Provider Registered Nurse Diabetes Educator; PCP Registered Nurse Diabetes Educator; Referring Provider Registered Nurse Diabetes Educator; Visit Provider Registered Nurse Diabetes Educator
DX: E11.9 Type 2 diabetes mellitus without complications (principal); Z71.3 Dietary counseling and surveillance
CPT/HCPCS: G0109

== ENCOUNTER → 2022-02-17 10:30 | Outpatient (CLI) | payer OTHER, MEDICAID, SELFPAY ==
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
== END ==
PROVIDERS: Family Provider Registered Nurse Diabetes Educator; PCP Registered Nurse Diabetes Educator; Referring Provider Registered Nurse Diabetes Educator; Visit Provider Registered Nurse Diabetes Educator
DX: E11.9 Type 2 diabetes mellitus without complications (principal); Z79.84 Long term (current) use of oral hypoglycemic drugs; Z71.3 Dietary counseling and surveillance
CPT/HCPCS: G0108

== ENCOUNTER → 2022-06-08 08:53 | Outpatient (CLI) | payer OTHER, MEDICAID, SELFPAY ==
[2022-06-08 10:06] LABS: Cholesterol 184 mg/dL (140-199); HDL Cholesterol 35 mg/dL (40-60); LDL Cholesterol Calculated 129 mg/dL (<100); Triglycerides 98 mg/dL (35-150)
[2022-06-08 10:10] LABS: Creatinine Urine Random 105.4 mg/dL
[2022-06-08 10:12] LABS: Microalbumi Creatinin Ratio Ur 5.6 ug/mg CR (<30); Microalbumin Urine Random 0.6 mg/dL (0-1.6)
[2022-06-09 06:11] LABS: Labcorp Hemoglobin (Hb) A1c 6.1 % (4.8-5.6)
== END ==
PROVIDERS: Family Provider Registered Nurse Diabetes Educator; PCP Registered Nurse Diabetes Educator; Referring Provider Registered Nurse Diabetes Educator; Visit Provider Registered Nurse Diabetes Educator
DX: E11.9 Type 2 diabetes mellitus without complications (principal); E78.5 Hyperlipidemia, unspecified
CPT/HCPCS: 36415; 80061; 82043; 82570; 83036

== ENCOUNTER → 2022-07-08 11:02 | Outpatient (CLI) | payer OTHER, MEDICAID, SELFPAY ==
[2022-07-08 12:45] LABS: Hematocrit 39.7 % (36-46); Hemoglobin 13.6 g/dL (12.0-16.0); Mean Corpuscular HGB Conc 34.3 % (30-36); Mean Corpuscular Hemoglobin 33.3 PG (26-34); Mean Corpuscular Volume 97.3 fL (80-100); Platelet Count 414 X10^3/uL (150-400); Red Blood Cell Count 4.08 X10^6/uL (4.0-5.2); Red Cell Distribution Width 13.5 % (11.6-14.8); White Blood Cell Count 9.7 X10^3/uL (4.5-11.0)
[2022-07-08 13:26] LABS: BUN Creatinine Ratio 12.4 (6-22); Blood Urea Nitrogen 11 mg/dL (7-17); Calcium 8.9 mg/dL (8.4-10.2); Carbon Dioxide 26 mmol/L (22-32); Chloride 103 mmol/L (98-107); Estimated Glomerular Filt Rate > 60 mL/min (>60); Glucose 75 mg/dL (70-100); HEMOLYSIS < 15 (0-50); Potassium 4.5 mmol/L (3.4-5.1); Sodium 136 mmol/L (137-145)
[2022-07-08 13:42] LABS: TSH w/ Reflex to FT4 0.04 uIU/mL (0.47-4.68)
[2022-07-08 14:20] LABS: Free T4, Direct Thyroxine 2.21 ng/dL (0.78-2.19)
== END ==
PROVIDERS: Family Provider Registered Nurse Diabetes Educator; PCP Registered Nurse Diabetes Educator; Referring Provider Registered Nurse Diabetes Educator; Visit Provider Registered Nurse Diabetes Educator
DX: D64.9 Anemia, unspecified (principal); E03.9 Hypothyroidism, unspecified; I10 Essential (primary) hypertension
CPT/HCPCS: 36415; 80048; 84439; 84443; 85027

== ENCOUNTER → 2022-09-13 11:08 | Outpatient (CLI) | payer OTHER, MEDICAID, SELFPAY ==
--- NOTE | 2022-09-13 11:10 | DI.RAD.S_ITS ---
PROCEDURE: XR LUMBAR SPINE MIN 4V INDICATIONS: positional RLE and RUE numbness TECHNIQUE: 5 views of the lumbar spine were acquired, including bilateral oblique views. COMPARISON: [facility], , XR LUMBAR SPINE MIN 4V, 09/10/2020, 11:26. FINDINGS: Bones: 5 nonrib-bearing vertebrae are present. Multilevel disc space narrowing and endplate osteophyte formation, as well as facet hypertrophy. There is normal bony alignment. No vertebral body compression fractures. No suspicious bony lesions. Soft tissues: Overlying bowel gas pattern is normal. No suspicious soft tissue calcifications. Oblique images: No pars defects. IMPRESSION: Multilevel degenerative disc and facet disease. No acute fracture. No osseous lesion. If symptoms and/or clinical suspicion for pathology persist, further assessment with repeat, or advanced imaging (e.g., CT, MRI, or bone scan) may be helpful for further assessment. Dictated by: Brianna Siegel M.D. on 09/13/2022 at 13:49 Transcribed by: ZAHEER on 09/13/2022 at 13:49 Approved by: Brianna Siegel M.D. on 09/13/2022 at 16:35
--- NOTE | 2022-09-13 11:10 | DI.RAD.S_ITS ---
PROCEDURE: XR CERVICAL SPINE 4V OR 5V INDICATIONS: positional RLE and RUE numbness TECHNIQUE: 5 views of the cervical spine acquired. COMPARISON: [facility], CR, XR CERVICAL SPINE 4V OR 5V, 06/09/2021, 10:03. FINDINGS: Bones: No fractures or dislocations to the C7 level. Oblique images demonstrate multifocal stenoses, worst on the left at C3-C4. Multilevel disc space narrowing and endplate osteophyte formation, as well as facet hypertrophy. Soft tissues: No prevertebral soft tissue swelling. IMPRESSION: 1. Multilevel degenerative disc and facet disease. 2. No acute fracture. No osseous lesion. If symptoms and/or clinical suspicion for pathology persist, further assessment with repeat, or advanced imaging (e.g., CT, MRI, or bone scan) may be helpful for further assessment. Dictated by: Brianna Siegel M.D. on 09/13/2022 at 13:50 Transcribed by: ZAHEER on 09/13/2022 at 13:50 Approved by: Brianna Siegel M.D. on 09/13/2022 at 16:35
== END ==
PROVIDERS: Family Provider Registered Nurse Diabetes Educator; PCP Registered Nurse Diabetes Educator; Referring Provider Registered Nurse Diabetes Educator; Visit Provider Registered Nurse Diabetes Educator
DX: M19.90 Unspecified osteoarthritis, unspecified site (principal)
CPT/HCPCS: 72050; 72110

== ENCOUNTER → 2022-09-15 10:12 | Outpatient (CLI) | payer OTHER, MEDICAID, SELFPAY ==
[2022-09-15 11:20] LABS: Hematocrit 37.2 % (36-46); Hemoglobin 12.8 g/dL (12.0-16.0); Mean Corpuscular HGB Conc 34.4 % (30-36); Mean Corpuscular Hemoglobin 33.6 PG (26-34); Mean Corpuscular Volume 97.8 fL (80-100); Platelet Count 465 X10^3/uL (150-400); Red Cell Distribution Width 13.1 % (11.6-14.8); White Blood Cell Count 10.4 X10^3/uL (4.5-11.0)
[2022-09-15 12:17] LABS: TSH w/ Reflex to FT4 0.09 uIU/mL (0.47-4.68)
[2022-09-15 12:43] LABS: Free T4, Direct Thyroxine 2.23 ng/dL (0.78-2.19)
[2022-09-16 05:39] LABS: Labcorp Hemoglobin (Hb) A1c 6.1 % (4.8-5.6)
== END ==
PROVIDERS: Family Provider Registered Nurse Diabetes Educator; PCP Registered Nurse Diabetes Educator; Referring Provider Registered Nurse Diabetes Educator; Visit Provider Registered Nurse Diabetes Educator
DX: D64.9 Anemia, unspecified (principal); E03.9 Hypothyroidism, unspecified; R79.89 Other specified abnormal findings of blood chemistry
CPT/HCPCS: 36415; 83036; 84439; 84443; 85027

== ENCOUNTER → 2022-10-06 07:17 | Outpatient (CLI) | payer OTHER, MEDICAID, SELFPAY ==
--- NOTE | 2022-10-06 | DI.MG.S_ITS ---
BILATERAL DIGITAL SCREENING MAMMOGRAM 3D/2D WITH CAD: 10/06/2022 CLINICAL: Routine screening. Comparison is made to exam dated: 02/02/2021 mammogram - [facility]. There are scattered areas of fibroglandular density in both breasts (category b / 25%-50% glandular tissue). Current study was also evaluated with a Computer Aided Detection (CAD) system. No significant masses, calcifications, or other findings are seen in either breast. There has been no significant interval change. IMPRESSION: NEGATIVE There is no mammographic evidence of malignancy. A 1 year screening mammogram is recommended. Based on the Tyrer Cuzick model (a risk assessment model) the patient's lifetime risk is 6.4% and her 10 year risk is 1.5%. According to the ACR, ACS, and NCCN guidelines, an annual breast MRI exam along with mammogram is recommended if the patient's lifetime risk is 20% or greater. This exam was interpreted at Station ID: [id number]. NOTE: For mammograms, a report in lay terms will be sent to the patient. Approximately 15% of breast malignancies will not be visualized mammographically. In the management of a palpable breast mass, a negative mammogram must not discourage biopsy of a clinically suspicious lesion. Electronically Signed By: Shailesh valdez/rianna:10/06/2022 08:45:00 letter sent: Normal Exam ACR BI-RADS Category 1: Negative [id number]
--- NOTE | 2022-10-06 07:20 | DI.MRI.S_ITS ---
PROCEDURE: MR LUMBAR SPINE WO CON INDICATIONS: eval lumbosacral radiculopathy TECHNIQUE: Noncontrast sagittal T1 spin echo and T2 fast echo, sagittal STIR, and T2 fast spin echo through the lumbar spine. In cases with scoliosis, additional coronal T2 fast spin echo may be performed. COMPARISON: None. FINDINGS: Image quality: Excellent. Alignment and Curvature: There is normal bony alignment. Bone Marrow: Marrow is of normal overall signal. No acute vertebral body compression fractures. Spinal Cord: Conus medullaris terminates at the L1 level. Visualized cord demonstrates normal signal and size. Paraspinous Soft Tissues: No paravertebral masses. Small left renal cyst. T12-L1: No central canal or neural foraminal stenosis. Mild facet arthropathy. L1-L2: No central canal or neural foraminal stenosis. Mild facet arthropathy. L2-L3: No central canal or neural foraminal stenosis. Mild facet arthropathy. L3-L4: No central canal or neural foraminal stenosis. Mild facet arthropathy and thickening of the ligamentum flavum the. L4-L5: No central canal or neural foraminal stenosis. Mild facet arthropathy and thickening of the ligamentum flavum the. Disc desiccation. L5-S1: Disc desiccation small posterior disc bulge with an annular tear. No signal canal stenosis. Facet arthropathy. Mild bilateral neural foraminal stenosis. IMPRESSION: 1. Degenerative changes of the lumbar spine. There is no significant central canal stenosis. 2. Mild bilateral neural foraminal stenosis at L5-S1. No significant central canal stenosis at other levels. Dictated by: Hector Emmanuel M.D. on 10/06/2022 at 10:12 Approved by: Hector Emmanuel M.D. on 10/06/2022 at 10:16
--- NOTE | 2022-10-06 07:20 | DI.MRI.S_ITS ---
PROCEDURE: MR CERVICAL SPINE WO CON INDICATIONS: eval cervical radiculopathy TECHNIQUE: Noncontrast sagittal T1 spin echo and T2 fast spin echo, sagittal STIR, foraminal oblique sagittal T2 fast spin echo, and axial gradient echo or T2 fast spin echo through the cervical spine. COMPARISON: None. FINDINGS: Image quality: Excellent. Alignment and Curvature: Straightening of normal cervical lordosis with mild reversal centered C5-C6. Bone Marrow: Marrow demonstrates normal overall signal. Spinal Cord: Visualized spinal cord has normal size and signal. No cerebellar tonsillar herniation. Paraspinous Soft Tissues: No paravertebral masses. Prevertebral soft tissues are normal in thickness. C2-C3: Normal appearance. C3-C4: No central canal stenosis. Left greater than right facet hypertrophy and uncovertebral arthropathy resulting in severe left neural foraminal stenosis. Mild right neural foraminal stenosis. C4-C5: No central canal stenosis. Left greater than right facet hypertrophy and uncovertebral arthropathy resulting in moderate left neural foraminal stenosis. No right neural foraminal stenosis. C5-C6: Disc desiccation and posterior disc bulge abutting the ventral cord resulting in mild central canal stenosis. Facet and uncovertebral arthropathy without neural foraminal stenosis. C6-C7: Disc desiccation and small posterior disc osteophyte complex resulting in mild central canal stenosis. Facet and uncovertebral arthropathy without neural foraminal stenosis. C7-T1: Normal appearance. IMPRESSION: 1. Multilevel degenerative changes of the cervical spine. Mild central canal stenosis at C5-C6 and C6-C7 without cord impingement or signal abnormality. 2. Multilevel neural foraminal stenosis, worse at C3-C4 with severe left neural foraminal stenosis. Additional levels of mild and moderate neural foramina stenosis as described above. Dictated by: Hector Emmanuel M.D. on 10/06/2022 at 10:00 Approved by: Hector Emmanuel M.D. on 10/06/2022 at 10:08
== END ==
PROVIDERS: Family Provider Registered Nurse Diabetes Educator; PCP Registered Nurse Diabetes Educator; Referring Provider Registered Nurse Diabetes Educator; Visit Provider Registered Nurse Diabetes Educator
DX: M47.22 Other spondylosis with radiculopathy, cervical region (principal); M48.02 Spinal stenosis, cervical region; M50.10 Cervical disc disorder with radiculopathy, unspecified cervical region; M51.17 Intervertebral disc disorders with radiculopathy, lumbosacral region; Z12.31 Encounter for screening mammogram for malignant neoplasm of breast; M48.07 Spinal stenosis, lumbosacral region; M47.27 Other spondylosis with radiculopathy, lumbosacral region; M47.26 Other spondylosis with radiculopathy, lumbar region
CPT/HCPCS: 72141; 72148; 77063; 77067

== ENCOUNTER → 2022-12-06 07:04 | Outpatient (CLI) | payer OTHER, MEDICAID, SELFPAY ==
[2022-12-06 09:35] LABS: TSH w/ Reflex to FT4 7.45 uIU/mL (0.47-4.68)
== END ==
PROVIDERS: Family Provider Registered Nurse Diabetes Educator; PCP Registered Nurse Diabetes Educator; Referring Provider Registered Nurse Diabetes Educator; Visit Provider Registered Nurse Diabetes Educator
DX: E03.9 Hypothyroidism, unspecified (principal)
CPT/HCPCS: 36415; 84439; 84443

== ENCOUNTER → 2023-01-25 07:56 | Outpatient (CLI) | payer OTHER, MEDICAID, SELFPAY ==
[2023-01-25 10:15] LABS: Hematocrit 38.1 % (36-46); Hemoglobin 13.1 g/dL (12.0-16.0); Mean Corpuscular HGB Conc 34.4 % (30-36); Mean Corpuscular Volume 98.6 fL (80-100); Platelet Count 405 X10^3/uL (150-400); Red Blood Cell Count 3.86 X10^6/uL (4.0-5.2); Red Cell Distribution Width 12.6 % (11.6-14.8); White Blood Cell Count 8.6 X10^3/uL (4.5-11.0)
[2023-01-25 10:31] LABS: Hemoglobin A1C% w Est Avg Glu 6.1 % (4.0-6.0)
[2023-01-25 10:33] LABS: Alanine Aminotransferase 17 IU/L (<35); Albumin 3.9 g/dL (3.5-5.0); Albumin Globulin Ratio 1.4 (1.0-2.8); Alkaline Phosphatase 57 U/L (38-126); Aspartate Aminotransferase 21 IU/L (14-36); BUN Creatinine Ratio 15.4 (6-22); Bilirubin Total 0.3 mg/dL (0.2-1.3); Blood Urea Nitrogen 14 mg/dL (7-17); Calcium 9.4 mg/dL (8.4-10.2); Carbon Dioxide 29 mmol/L (22-32); Chloride 100 mmol/L (98-107); Cholesterol 135 mg/dL (140-199); Estimated Glomerular Filt Rate > 60 mL/min (>60); Globulin 2.7 g/dL (1.7-4.1); Glucose 111 mg/dL (70-100); HDL Cholesterol 46 mg/dL (40-60); HEMOLYSIS < 15 (0-50); LDL Cholesterol Calculated 70 mg/dL (<100); Potassium 4.3 mmol/L (3.4-5.1); Sodium 134 mmol/L (137-145); Total Protein 6.6 g/dL (6.3-8.2); Triglycerides 95 mg/dL (35-150)
[2023-01-25 11:06] LABS: TSH w/ Reflex to FT4 0.34 uIU/mL (0.47-4.68)
[2023-01-25 11:23] LABS: Creatinine Urine Random 115.5 mg/dL
[2023-01-25 11:28] LABS: Microalbumin Urine Random < 0.6 mg/dL (0-1.6)
[2023-01-25 11:49] LABS: Free T4, Direct Thyroxine 1.88 ng/dL (0.78-2.19)
== END ==
PROVIDERS: Family Provider Registered Nurse Diabetes Educator; PCP Registered Nurse Diabetes Educator; Referring Provider Registered Nurse Diabetes Educator; Visit Provider Registered Nurse Diabetes Educator
DX: I10 Essential (primary) hypertension (principal); E11.9 Type 2 diabetes mellitus without complications; D75.839 Thrombocytosis, unspecified; E78.5 Hyperlipidemia, unspecified; N18.30 Chronic kidney disease, stage 3 unspecified; E03.9 Hypothyroidism, unspecified
CPT/HCPCS: 36415; 80053; 80061; 82043; 82570; 83036; 84439; 84443; 85027

== ENCOUNTER 2023-04-01 07:05 | Day surgery (SDC) | payer OTHER, MEDICAID, SELFPAY ==
[2023-04-01 07:50] VITALS: BP 160/98; PULSE 72; RESP 16; TEMP 36.6; O2SAT 99
[2023-04-01] MEDS: LACTATED RINGERS 1,000 ML 42 ML IV (07:55)
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
--- NOTE | 2023-04-01 08:37 | PM.OP.COLON ---
Operative Date/Time/Diagnoses Date of procedure: 04/01/23 Time of procedure: 08:37 Pre-op diagnosis: Screening colonoscopy Post-op diagnosis: same Procedure & Clinicians Study performed: Colonoscopy with anesthesia Same procedure as scheduled: Yes Indications: Screening colonoscopy Surgeon: Maria Teresa Saldana Procedure Notes Procedure in detail: Preop diagnosis: Colon cancer screening Postop diagnosis: Same Operative procedure: Colonoscopy with anesthesia Surgeon: Diane Saldana MD Findings: No polyps identified. No significant diverticulosis, grade 2 internal hemorrhoids. Procedure: Patient placed in lateral position. Rectal exam performed showing normal tone no masses. Colonoscope was inserted into the rectum and advanced to ileocecal valve with minimal difficulty. Insufflation extraction of the scope and the above findings. Colon prep was poor in that smaller sessile polyps could be missed. Retroflex was included in the rectum. Impression: No polyps, no significant diverticulosis. Plan: Repeat colonoscopy in 10 years unless otherwise indicated by change in clinical condition Specimen(s): none sent Complications: none Post-procedure Recommendations: Colonoscopy in 10 years Follow up: as needed Disposition: PACU
[2023-04-01 08:43] VITALS: BP 160/70; PULSE 75; RESP 16; TEMP 36.2; O2SAT 98
[2023-04-01 08:45] VITALS: BP 159/99; PULSE 75; RESP 16; TEMP 36.8; O2SAT 98
[2023-04-01 08:56] VITALS: BP 160/98; PULSE 78; RESP 15; TEMP 36.6; O2SAT 98
== END 2023-04-01 09:04 | disposition home or self-care (01) ==
PROVIDERS: Family Provider Registered Nurse Diabetes Educator; PCP Registered Nurse Diabetes Educator; Referring Provider Surgery; Visit Provider Surgery
PROC: 0DJD8ZZ Inspection of Lower Intestinal Tract, Via Natural or Artificial Opening Endoscopic (ICD-10-PCS; CPT 45378; principal; 2023-04-01 08:15)
DX: Z12.11 Encounter for screening for malignant neoplasm of colon (principal); K64.8 Other hemorrhoids; Z83.719 Family history of colon polyps, unspecified
CPT/HCPCS: 45378; J2704

== ENCOUNTER → 2023-07-04 09:00 | Outpatient (CLI) | payer OTHER, MEDICAID, SELFPAY ==
[2023-07-04 11:07] LABS: TSH w/ Reflex to FT4 2.17 uIU/mL (0.47-4.68)
== END ==
PROVIDERS: Family Provider Registered Nurse Diabetes Educator; PCP Registered Nurse Diabetes Educator; Referring Provider Registered Nurse Diabetes Educator; Visit Provider Registered Nurse Diabetes Educator
DX: E03.9 Hypothyroidism, unspecified (principal)
CPT/HCPCS: 36415; 84443

== ENCOUNTER → 2023-11-30 08:03 | Outpatient (CLI) | payer OTHER, MEDICAID, SELFPAY ==
--- NOTE | 2023-11-30 08:04 | DI.MG.S_ITS ---
BILATERAL DIGITAL SCREENING MAMMOGRAM 3D/2D WITH CAD: 11/30/2023 CLINICAL: Routine screening. Comparison is made to exams dated: 10/06/2022 mammogram and 02/02/2021 mammogram - [facility]. The breasts are almost entirely fatty (category a/<25% glandular tissue). Current study was also evaluated with a Computer Aided Detection (CAD) system. No significant masses, calcifications, or other findings are seen in either breast. There has been no significant interval change. IMPRESSION: NEGATIVE There is no mammographic evidence of malignancy. A 1 year screening mammogram is recommended. Based on the Tyrer Cuzick model (a risk assessment model) the patient's lifetime risk is 4.3% and her 10 year risk is 1.0%. According to the ACR, ACS, and NCCN guidelines, an annual breast MRI exam along with mammogram is recommended if the patient's lifetime risk is 20% or greater. This exam was interpreted at Station ID: [id number]. NOTE: For mammograms, a report in lay terms will be sent to the patient. Approximately 15% of breast malignancies will not be visualized mammographically. In the management of a palpable breast mass, a negative mammogram must not discourage biopsy of a clinically suspicious lesion. Electronically Signed By: Tatum guillen/rianna:11/30/2023 14:21:12 letter sent: Normal Exam ACR BI-RADS Category 1: Negative [id number]
== END ==
PROVIDERS: Family Provider Registered Nurse Diabetes Educator; PCP Registered Nurse Diabetes Educator; Referring Provider Registered Nurse Diabetes Educator; Visit Provider Registered Nurse Diabetes Educator
DX: Z12.31 Encounter for screening mammogram for malignant neoplasm of breast (principal); R92.313 Mammographic fatty tissue density, bilateral breasts
CPT/HCPCS: 77063; 77067

== ENCOUNTER → 2023-12-28 07:21 | Outpatient (CLI) | payer OTHER, MEDICAID, SELFPAY ==
[2023-12-28 08:01] LABS: Hematocrit 39.6 % (36-46); Hemoglobin 13.7 g/dL (12.0-16.0); Mean Corpuscular HGB Conc 34.6 % (30-36); Mean Corpuscular Hemoglobin 34.3 PG (26-34); Mean Corpuscular Volume 99.2 fL (80-100); Platelet Count 414 X10^3/uL (150-400); Red Blood Cell Count 3.99 X10^6/uL (4.0-5.2); Red Cell Distribution Width 12.7 % (11.6-14.8); White Blood Cell Count 10.4 X10^3/uL (4.5-11.0)
[2023-12-28 08:10] LABS: Hemoglobin A1C% w Est Avg Glu 5.8 % (4.0-6.0)
[2023-12-28 08:24] LABS: Alanine Aminotransferase 14 IU/L (<35); Albumin 4.1 g/dL (3.5-5.0); Albumin Globulin Ratio 1.7 (1.0-2.8); Alkaline Phosphatase 53 U/L (38-126); Aspartate Aminotransferase 17 IU/L (14-36); Bilirubin Total 0.4 mg/dL (0.2-1.3); Blood Urea Nitrogen 12 mg/dL (7-17); Calcium 9.4 mg/dL (8.4-10.2); Carbon Dioxide 25 mmol/L (22-32); Chloride 101 mmol/L (98-107); Cholesterol 126 mg/dL (140-199); Estimated Glomerular Filt Rate > 60 mL/min (>60); Globulin 2.4 g/dL (1.7-4.1); Glucose 125 mg/dL (70-100); HDL Cholesterol 50 mg/dL (40-60); HEMOLYSIS < 15 (0-50); LDL Cholesterol Calculated 60 mg/dL (<100); Potassium 4.2 mmol/L (3.4-5.1); Sodium 133 mmol/L (137-145); Total Protein 6.5 g/dL (6.3-8.2); Triglycerides 82 mg/dL (35-150)
[2023-12-28 08:40] LABS: Creatinine Urine Random 243.39 mg/dL
[2023-12-28 08:44] LABS: Microalbumin Urine Random 3.6 mg/dL (0-1.6)
[2023-12-28 08:52] LABS: TSH w/ Reflex to FT4 0.43 uIU/mL (0.47-4.68)
[2023-12-28 16:41] LABS: Free T4, Direct Thyroxine 1.55 ng/dL (0.78-2.19)
== END ==
PROVIDERS: Family Provider Registered Nurse Diabetes Educator; PCP Registered Nurse Diabetes Educator; Referring Provider Registered Nurse Diabetes Educator; Visit Provider Registered Nurse Diabetes Educator
DX: E11.9 Type 2 diabetes mellitus without complications (principal)
CPT/HCPCS: 36415; 80053; 80061; 82043; 82570; 83036; 84439; 84443; 85027

== ENCOUNTER → 2024-01-04 10:36 | Outpatient (CLI) | payer OTHER, MEDICAID, SELFPAY ==
--- NOTE | 2024-01-04 10:38 | DI.RAD.S_ITS ---
PROCEDURE: XR CERVICAL SPINE 4V OR 5V INDICATIONS: eval L shoulder and L knee pain, LBP, neck pain, radiculopat TECHNIQUE: 5 views of the cervical spine acquired. COMPARISON: [facility], CR, XR CERVICAL SPINE 4V OR 5V, 09/13/2022, 11:06. [facility], CR, XR CERVICAL SPINE 4V OR 5V, 06/09/2021, 10:03. FINDINGS: Bones: No fractures or dislocations to the C7 level. Moderate degenerative changes most pronounced at C5-C6 and C6-C7. Bony neural foraminal narrowing at left C3-C4. Soft tissues: No prevertebral soft tissue swelling. IMPRESSION: Findings not significantly changed. Moderate degenerative changes most pronounced at C5-C6 and C6-C7. Bony neural foraminal narrowing at left C3-C4. Dictated by: Romeo Moseley M.D. on 01/04/2024 at 13:50 Approved by: Romeo Moseley M.D. on 01/04/2024 at 13:55
--- NOTE | 2024-01-04 10:38 | DI.RAD.S_ITS ---
PROCEDURE: XR KNEE LT 3V INDICATIONS: eval L shoulder and L knee pain, LBP, neck pain, radiculopat TECHNIQUE: 3 views of the knee were acquired. COMPARISON: [facility], [place], XR KNEE RT 3V, 06/09/2021, 10:03. FINDINGS: Bones: No fractures or dislocations. No suspicious bony lesions. Soft tissues: No joint effusion. No suspicious soft tissue calcifications. IMPRESSION: No significant bony abnormality. Dictated by: Romeo Moseley M.D. on 01/04/2024 at 13:59 Approved by: Romeo Moseley M.D. on 01/04/2024 at 14:00
--- NOTE | 2024-01-04 10:38 | DI.RAD.S_ITS ---
PROCEDURE: XR SHOULDER LT MIN 2V INDICATIONS: eval L shoulder and L knee pain, LBP, neck pain, radiculopat TECHNIQUE: 3 views of the shoulder were acquired. COMPARISON: [facility], CR, XR SHOULDER RT MIN 2V, 06/09/2021, 10:03. FINDINGS: Bones: No fractures or dislocations. No suspicious bony lesions. No significant degenerative changes seen. Visualized ribs appear intact. Soft tissues: No suspicious soft tissue calcifications. IMPRESSION: No acute bony abnormality. MRI could be considered for further evaluation. Dictated by: Romeo Moseley M.D. on 01/04/2024 at 13:55 Approved by: Romeo Moseley M.D. on 01/04/2024 at 13:56
--- NOTE | 2024-01-04 10:38 | DI.RAD.S_ITS ---
PROCEDURE: XR LUMBAR SPINE MIN 4V INDICATIONS: eval L shoulder and L knee pain, LBP, neck pain, radiculopat TECHNIQUE: 5 views of the lumbar spine were acquired, including bilateral oblique views. COMPARISON: [facility], CR, XR LUMBAR SPINE MIN 4V, 09/13/2022, 11:06. [facility], CR, XR LUMBAR SPINE MIN 4V, 09/10/2020, 11:26. FINDINGS: Bones: 5 nonrib-bearing vertebrae are present. There is normal bony alignment. No vertebral body compression fractures. Disc space height is preserved. No suspicious bony lesions. Soft tissues: Overlying bowel gas pattern is normal. No suspicious soft tissue calcifications. Arterial vascular calcifications. Oblique images: No pars defects. IMPRESSION: No compression fracture. No significant change. Dictated by: Romeo Moseley M.D. on 01/04/2024 at 13:57 Approved by: Romeo Moseley M.D. on 01/04/2024 at 13:59
== END ==
PROVIDERS: Family Provider Registered Nurse Diabetes Educator; PCP Registered Nurse Diabetes Educator; Referring Provider Registered Nurse Diabetes Educator; Visit Provider Registered Nurse Diabetes Educator
DX: M54.17 Radiculopathy, lumbosacral region (principal); M47.22 Other spondylosis with radiculopathy, cervical region; M48.02 Spinal stenosis, cervical region; M25.512 Pain in left shoulder; M25.562 Pain in left knee; G89.29 Other chronic pain
CPT/HCPCS: 72050; 72110; 73030; 73562

== ENCOUNTER → 2024-06-27 08:36 | Outpatient (CLI) | payer OTHER, SELFPAY ==
--- NOTE | 2024-06-27 08:37 | DI.US.S_ITS ---
PROCEDURE: US PERIPH VENOUS LOW EXTREM RT INDICATIONS: SWELLING/PAIN TECHNIQUE: Real-time imaging, as well as color and pulse Doppler interrogation, were performed of the lower extremity deep veins from the inguinal ligament to the popliteal fossa, with documentation of the visualized calf veins. COMPARISON: None. FINDINGS: The common femoral, femoral, popliteal, and the visualized calf veins are normally compressible, and free of intraluminal thrombus. Color and pulse Doppler demonstrate normal phasic intraluminal flow. There is normal augmentation response to distal compression maneuver. IMPRESSION: Negative right lower extremity duplex venous ultrasound for DVT. Dictated by: Anurag Armstrong M.D. on 06/27/2024 at 9:47 Approved by: Anurag Armstrong M.D. on 06/27/2024 at 9:48
== END ==
PROVIDERS: Family Provider Registered Nurse Diabetes Educator; PCP Registered Nurse Diabetes Educator; Referring Provider Registered Nurse Diabetes Educator; Visit Provider Registered Nurse Diabetes Educator
DX: R60.9 Edema, unspecified (principal); R52 Pain, unspecified
CPT/HCPCS: 93971

== ENCOUNTER → 2024-06-29 07:10 | Outpatient (CLI) | payer OTHER, SELFPAY ==
[2024-06-29 08:23] LABS: Hemoglobin A1C% w Est Avg Glu 5.5 % (4.0-6.0)
== END ==
PROVIDERS: Family Provider Registered Nurse Diabetes Educator; PCP Registered Nurse Diabetes Educator; Referring Provider Registered Nurse Diabetes Educator; Visit Provider Registered Nurse Diabetes Educator
DX: E11.9 Type 2 diabetes mellitus without complications (principal)
CPT/HCPCS: 36415; 83036

== ENCOUNTER → 2024-09-15 09:02 | Outpatient (CLI) | payer OTHER, SELFPAY ==
[2024-09-15 10:37] LABS: TSH w/ Reflex to FT4 12.40 uIU/mL (0.47-4.68)
[2024-09-15 11:52] LABS: Free T4, Direct Thyroxine 0.55 ng/dL (0.78-2.19)
== END ==
PROVIDERS: Family Provider Registered Nurse Diabetes Educator; PCP Registered Nurse Diabetes Educator; Referring Provider Registered Nurse Diabetes Educator; Visit Provider Registered Nurse Diabetes Educator
DX: E03.9 Hypothyroidism, unspecified (principal)
CPT/HCPCS: 36415; 84439; 84443

== ENCOUNTER → 2024-11-20 09:08 | Outpatient (CLI) | payer OTHER, SELFPAY ==
[2024-11-20 10:23] LABS: TSH w/ Reflex to FT4 0.11 uIU/mL (0.47-4.68)
[2024-11-20 10:48] LABS: Free T4, Direct Thyroxine 1.91 ng/dL (0.78-2.19)
== END ==
PROVIDERS: Family Provider Registered Nurse Diabetes Educator; PCP Registered Nurse Diabetes Educator; Referring Provider Registered Nurse Diabetes Educator; Visit Provider Registered Nurse Diabetes Educator
DX: E03.9 Hypothyroidism, unspecified (principal)
CPT/HCPCS: 36415; 84439; 84443

== ENCOUNTER → 2024-12-24 08:14 | Outpatient (CLI) | payer OTHER, SELFPAY ==
--- NOTE | 2024-12-24 08:16 | DI.RAD.S_ITS ---
PROCEDURE: XR CHEST 2V INDICATIONS: eval SOB, wheeze TECHNIQUE: 2 views of the chest were acquired. COMPARISON: None. FINDINGS: Surgical changes and devices: None. Lungs and pleura: Lungs are clear. No pleural effusions or pneumothorax. Mediastinum: Mediastinal contours are normal. Heart size is normal. Bones and chest wall: No suspicious bony abnormalities. Soft tissues appear unremarkable. IMPRESSION: No acute cardiopulmonary abnormality is seen. Dictated by: Romeo Moseley M.D. on 12/24/2024 at 11:47 Approved by: Romeo Moseley M.D. on 12/24/2024 at 11:48
--- NOTE | 2024-12-24 08:16 | DI.MG.S_ITS ---
MM screening mammo BI: 12/24/2024. BI-RADS: 1 CLINICAL: 54-year old female for bilateral screening mammogram. Tyrer-Cuzick lifetime risk of 4.2%. No personal or first-degree family history of breast cancer. PRIOR EXAMS 11/30/2023, 10/06/2022, 02/02/2021. MAMMOGRAPHY TECHNIQUE: 2D and 3D (tomosynthesis) digital mammographic views obtained, with additional images as needed for full coverage. Current study was also evaluated with a Computer Aided Detection (CAD) system. DENSITY A. The breasts are almost entirely fatty. MAMMOGRAPHY FINDINGS Bilateral: No suspicious mass, asymmetry, microcalcification, or other abnormality seen. IMPRESSION: * No evidence of malignancy. RECOMMENDATIONS Bilateral * Annual screening mammography. OVERALL ASSESSMENT CATEGORY BI-RADS-1: Negative. The [employer] recommends annual screening mammography beginning at age 40 for women with average risk of breast cancer. ELECTRONICALLY SIGNED: Romeo Moseley M.D. on 12/25/2024 at 08:51:33 AM PT Interpreting Station ID: [id number]
== END ==
PROVIDERS: Family Provider Registered Nurse Diabetes Educator; PCP Registered Nurse Diabetes Educator; Referring Provider Registered Nurse Diabetes Educator; Visit Provider Registered Nurse Diabetes Educator
DX: Z12.31 Encounter for screening mammogram for malignant neoplasm of breast (principal); R92.313 Mammographic fatty tissue density, bilateral breasts; R06.00 Dyspnea, unspecified; R06.2 Wheezing; F17.201 Nicotine dependence, unspecified, in remission
CPT/HCPCS: 71046; 77063; 77067

== ENCOUNTER → 2024-12-31 08:18 | Outpatient (CLI) | payer OTHER, SELFPAY | PROVIDERS: Family Provider Registered Nurse Diabetes Educator; PCP Registered Nurse Diabetes Educator; Referring Provider Registered Nurse Diabetes Educator; Visit Provider Registered Nurse Diabetes Educator | DX: R06.00 Dyspnea, unspecified (principal); R06.02 Shortness of breath; F17.201 Nicotine dependence, unspecified, in remission; J98.8 Other specified respiratory disorders; R94.2 Abnormal results of pulmonary function studies | CPT/HCPCS: 94060; 94726; 94729 ==

== ENCOUNTER → 2025-01-10 07:44 | Outpatient (CLI) | payer OTHER, SELFPAY ==
[2025-01-10 09:44] LABS: Hematocrit 40.1 % (36-46); Hemoglobin 13.7 g/dL (12.0-16.0); Mean Corpuscular HGB Conc 34.1 % (30-36); Mean Corpuscular Hemoglobin 33.3 PG (26-34); Mean Corpuscular Volume 97.6 fL (80-100); Platelet Count 467 X10^3/uL (150-400)
[2025-01-10 09:46] LABS: Microalbumi Creatinin Ratio Ur 20.0 ug/mg CR (<30)
[2025-01-10 10:08] LABS: Alanine Aminotransferase 18 IU/L (<35); Albumin 4.4 g/dL (3.5-5.0); Albumin Globulin Ratio 1.4 (1.0-2.8); Alkaline Phosphatase 64 U/L (38-126); Blood Urea Nitrogen 13 mg/dL (7-17); Calcium 9.0 mg/dL (8.4-10.2); Carbon Dioxide 27 mmol/L (22-32); Chloride 102 mmol/L (98-107); Cholesterol 174 mg/dL (140-199); Estimated Glomerular Filt Rate > 60 mL/min (>60); Globulin 3.1 g/dL (1.7-4.1); Glucose 135 mg/dL (70-99); HDL Cholesterol 53 mg/dL (40-60); HEMOLYSIS < 15 (0-50); Potassium 4.4 mmol/L (3.4-5.1); Sodium 138 mmol/L (137-145); Total Protein 7.5 g/dL (6.3-8.2); Triglycerides 128 mg/dL (35-150)
[2025-01-10 10:34] LABS: Hemoglobin A1C% w Est Avg Glu 6.1 % (4.0-6.0)
[2025-01-10 10:41] LABS: TSH w/ Reflex to FT4 1.51 uIU/mL (0.47-4.68)
== END ==
PROVIDERS: PCP Registered Nurse Diabetes Educator; Referring Provider Registered Nurse Diabetes Educator; Visit Provider Registered Nurse Diabetes Educator
DX: R80.9 Proteinuria, unspecified (principal); E03.9 Hypothyroidism, unspecified; E78.5 Hyperlipidemia, unspecified; E11.9 Type 2 diabetes mellitus without complications; N18.31 Chronic kidney disease, stage 3a
CPT/HCPCS: 36415; 80053; 80061; 82043; 82570; 83036; 84443; 85027